=== PATIENT | female | born 1950 | race Caucasian/White ===

== ENCOUNTER 2017-01-27 13:10 | Inpatient (IN) | payer MEDICAID ==
[2017-01-27] MEDS ORDERED: NS 1,000 ML IV ONE (13:35)
--- NOTE | 2017-01-27 13:36 | EDPHY ---
H & P Time Seen by Provider: 01/27/17 13:34 HPI/ROS: CHIEF COMPLAINT: Hyperglycemia, UTI symptoms HISTORY OF PRESENT ILLNESS: This patient is a 66 year old diabetic female with history of chronic UTI who was referred to the Emergency Department by Dr. Garcia for hyperglycemia measured above 600 today and persistent UTI-related symptoms. She admits that she is noncompliant with insulin for diabetes due to "difficulty coping with chronic illness." She does not take metformin. Upon arrival, she complains of stabbing pains to her left flank, urinary frequency, and intermittent fevers up to 101F measured at home over the past week. She denies hematuria or dysuria. No lightheadedness, nausea, or abdominal pain. Medical history also renal cell carcinoma with left-sided nephrectomy; she is concerned that her chronic UTI is somehow related to this prior procedure. REVIEW OF SYSTEMS: Constitutional: +fever, no chills Eyes: No visual changes ENT: No sore throat Respiratory: No cough, no shortness of breath Cardiac: No chest pain Gastrointestinal: No nausea, no vomiting, no abdominal pain Genitourinary: +left flank pain, no hematuria, no dysuria Musculoskeletal: No leg pain or swelling Skin: No rash Neurological: No headache, no numbness, no weakness Psychiatric: No depression Past Medical/Surgical History: Prior medical records reviewed; most recent visit to the ED was in 03/2016 for recurrent UTI. PMH and PSH includes: Diabetes type 2, paroxysmal atrial fibrillation, renal cell carcinoma on the left status post nephrectomy, kidney stones, recurrent UTIs, chronic pain, fibromyalgia. Social History: Non-smoker. No alcohol use. Lives independently with home health caregivers, one of whom is at bedside today. She is mostly bed-bound. Smoking Status: Never smoked Physical Exam: General Appearance: Alert, no distress, obese Eyes: Pupils equal and round, no conjunctival pallor or injection ENT, Mouth: Mucous membranes moist Neck: Normal inspection Respiratory: Lungs are clear to auscultation Cardiovascular: Regular rate and rhythm Gastrointestinal: Abdomen is soft and non- tender Neurological: A&O, nonfocal, normal gait Skin: Warm and dry, no rash Extremities: Nontender, no pedal edema Psychiatric: Mood and affect normal Constitutional: Initial Vital Signs Temperature (C) 37.0 C 01/27/17 13:19 Heart Rate 123 H 01/27/17 13:19 Respiratory Rate 18 04/04/17 13:19 Blood Pressure 132/86 H 01/27/17 13:19 O2 Sat (%) 91 L 01/27/17 13:19 O2 Delivery Mode Room Air Allergies/Adverse Reactions: erythromycin base [Erythromycin Base] Allergy (Severe, Verified 01/27/17 13:24) Rash Penicillins Allergy (Severe, Verified 01/27/17 13:24) Rash Shellfish *RETIRED-07/05/12 [Shellfish] Allergy (Severe, Verified 01/27/17 13:24 ) Rash Sulfa (Sulfonamide Antibiotics) Allergy (Severe, Verified 01/27/17 13:24) Rash codeine Allergy (Unknown, Verified 01/27/17 13:24) "ANTIBIOTICS" Allergy (Severe, Uncoded 12/01/11 21:02) Other-Enter Comments Home Medications: Medication Instructions Recorded Azelastine [Astelin] 2 sprays NASAL BID PRN 12/01/11 Thyroid,Pork [ARMOUR THYROID] 90 mg PO DAILY 12/01/11 amLODIPine BESYLATE [Norvasc 10 mg 10 mg PO DAILY 12/01/11 (*)] Albuterol [Proventil Neb] 3 ml IH QID PRN 04/19/16 Albuterol [Ventolin Hfa Inhaler] 1 - 2 puffs IH Q4 PRN 04/19/16 Lisinopril [Zestril 5 mg (*)] 5 mg PO DAILY 04/19/16 Nystatin [Mycostatin Oral Liquid 500,000 unit PO QID 04/19/16 (*)] Terconazole 0.8% Cream 1 venancio VG DAILY PRN 04/19/16 morphINE SR [MS Contin/Oramorph 60 60 mg PO BID@,18 04/19/16 mg (*)] morphINE IR [morphINE IR 15 mg (*)] 15 mg PO BID PRN 04/20/16 Clotrimazole [Mycelex (*)] 10 mg PO 5XD 01/27/17 Fluconazole [Diflucan] 400 mg PO DAILY 01/27/17 Sennosides/Docusate Sodium 1 - 2 tab PO BID PRN 01/27/17 [Senokot-S] Medical Decision Making ED Course/Re-evaluation: This 66 year old female diabetic is noncompliant with medications per Dr. Garcia and presents with bgl of 434. She has a chronic UTI that has not been alleviated effectively with multiple rounds of antibiotics. Her primary complaints appear to be secondary to this UTI and include left-sided flank pain , urinary frequency, and intermittent low-grade fevers. Dr. Garcia requests that we proceed with admission for further evaluation of these symptoms and for effective management of diabetic hyperglycemia. I discussed this plan with the patient who is agreeable to this. Will proceed with urogram and labs. The patient is refusing to provide a urine sample and is requesting placement of Yin catheter. IV established. 1L IV NS administered. UA is positive for UTI. Labs obtained: WBC is elevated at 13.11. 1 gram IV Ceftriaxone and 6 units IV insulin administered. 1448: Consultation with Dr. Nuris Garland, hospitalist, who accepts admission. Differential Diagnosis: Differential diagnosis for the patient's flank pain and urinary frequency includes but is not limited to: UTI, pyelonephritis, or kidney stone. Ddx for hyperglycemia includes though not limited to DKA, ACS, pneumonia, severe dehydration - Data Points Laboratory Results: Laboratory Results 01/27/17 13:47 01/27/17 13:47 Medications Given: Discontinued Medications Sodium Chloride (Ns) 1,000 mls @ 0 mls/hr IV ONCE ONE PRN Reason: Wide Open Stop: 01/27/17 13:36 Last Admin: 01/27/17 14:30 Dose: 1,000 mls Ceftriaxone Sodium/Dextrose (Rocephin 1 Gm (Premix)) 50 mls @ 100 mls/hr IV EDNOW ONE PRN Reason: Protocol Stop: 01/27/17 14:49 Last Admin: 01/27/17 16:02 Dose: 50 mls Insulin Human Regular (Humulin R) 6 unit IVP EDNOW ONE Stop: 01/27/17 14:44 Last Admin: 01/27/17 16:04 Dose: 6 units Departure - Departure Disposition: [facility] In[facility] Acute Clinical Impression: Hyperglycemia Urinary tract infection Qualifiers: Urinary tract infection type: site unspecified Hematuria presence: with hematuria Qualified Code(s): N39.0 - Urinary tract infection, site not specified Condition: Fair Report Scribed for: Elvira Castillo Report Scribed by: Jill Jolly Date of Report: 01/27/17 Time of Report: 13:35 Physician Review and Approval Statement: 01/27/17 13:35 Portions of this note were transcribed by a chief medical technologist. I personally performed a history, physical exam, medical decision making, and confirmed accuracy of information the transcribed note.
[2017-01-27 13:58] LABS: % IMMATURE GRANULYOCYTES 0.6 % (0.0-1.1); ABSOLUTE IMMATURE GRANULOCYTES 0.08 10^3/uL (0.00-0.10); ADD DIFF? NO; ADD MORPH? NO; ADD SCAN? NO; ATYPICAL LYMPHOCYTE FLAG 0 (0-99); FRAGMENT RBC FLAG 0 (0-99); HEMATOCRIT 49.1 % (38.0-47.0); HEMOGLOBIN 15.9 g/dL (12.6-16.3); LEFT SHIFT FLG 0 (0-99); LIPEMIA HEMOLYSIS FLAG 80 (0-99); MEAN CELL HEMOGLOBIN 27.3 pg (27.9-34.1); MEAN CELL HEMOGLOBIN CONCENTR. 32.4 g/dL (32.4-36.7); MEAN CELL VOLUME 84.4 fL (81.5-99.8); MEAN PLATELET VOLUME 9.8 fL (8.7-11.7); PLATELET CLUMPS FLAG 0 (0-99); PLATELET COUNT 362 10^3/uL (150-400); RED BLOOD CELL COUNT 5.82 10^6/uL (4.18-5.33); RED CELL DISTRIBUTION WIDTH 12.5 % (11.5-15.2)
[2017-01-27 14:15] LABS: COLOR YELLOW; LEUKOCYTE ESTERASE,URINE 3+ (NEGATIVE); NITRITE,URINE NEGATIVE (NEGATIVE)
[2017-01-27 14:15] LABS: ANION GAP 15 mEq/L (8-16); CALCIUM 9.7 mg/dL (8.5-10.4); CARBON DIOXIDE 24 mEq/l (22-31); CHLORIDE 97 mEq/L (97-110); CREATININE 0.8 mg/dL (0.6-1.0); GLOMERULAR FILTRATION RATE > 60; GLUCOSE 434 mg/dL (70-100); POTASSIUM 5.2 mEq/L (3.5-5.2); SODIUM 136 mEq/L (134-144)
[2017-01-27 14:26] LABS: BACTERIA 1+ /hpf (NONE SEEN); MUCUS TRACE /lpf (NONE-1+); RBC,URINE 25-50 /hpf (0-3); WBC,URINE 50-182 /hpf (0-3)
[2017-01-27] MEDS ORDERED: IOPAMIDOL (ISOVUE-300) 100 ML BTL IV ONE (14:32)
[2017-01-27] MEDS ORDERED: INSULIN REGULAR HUMAN 100 UNIT/ML IVP ONE (14:43)
[2017-01-27] MEDS ORDERED: ONDANSETRON 4 MG/2 ML VIAL IVP PRN (16:28)
[2017-01-27] MEDS ORDERED: ONDANSETRON DISINTEGRATING 4 MG TAB PO PRN (16:28)
[2017-01-27] MEDS ORDERED: ACETAMINOPHEN 325 MG TAB PO PRN (16:28)
[2017-01-27] MEDS ORDERED: AZELASTINE NASAL MDI EACHNARE PRN (16:30)
[2017-01-27] MEDS ORDERED: SENNOSIDES/DOCUSATE SODIUM TAB PO PRN (16:30)
[2017-01-27] MEDS ORDERED: ALBUTEROL 3 ML DEYVIAL IH PRN (16:36)
[2017-01-27] MEDS ORDERED: D50W 25 GM/50 ML SYR IVP PRN (17:09)
[2017-01-27] MEDS ORDERED: ALBUTEROL 60 PUFFS/8 GM MDI IH PRN (17:30)
--- NOTE | 2017-01-27 17:30 | GHP ---
[f rep st] HISTORY AND PHYSICAL DATE OF ADMISSION: 01/27/2017 CHIEF COMPLAINT: Hyperglycemia, UTI. HISTORY OF PRESENT ILLNESS: The patient is a 66-year-old female with history of morbid obesity, fibromyalgia, recurrent UTIs presenting from her PCP, Dr. Medina, [facility] for hyperglycemia with a sugar greater than 300 today. She also complains of persistent UTI related symptoms. She was last hospitalized in 2016 and had E coli UTI that was treated. She says since that discharge, she has been having urinary frequency to the point of going every 45 minutes. Over the last few days, she has reported left flank pain, fevers to 101 and nausea. She also reports some cramping abdominal pain and decreased p.o. intake. She says she has been treated in the last couple months with Macrobid. Does not tolerate pills, "they cause vertigo." She has had difficulty seeing a urologist secondary to Medicaid. At 1 point, she did see a Dr. Casey, but this was brief. Patient says she cannot ambulate for a very long time due to chronic pain. Does not use a walker or wheelchair. The patient has not been taking her insulin or using CPAP stating difficult to cope with all of her chronic illnesses. REVIEW OF SYSTEMS: I completed a 10-point review of systems, negative except as noted in HPI. PAST MEDICAL HISTORY: 1. Type 2 diabetes. 2. History of E coli UTI. 3. Lumbar stenosis, was evaluated by Neurosurgery in March 2016 not a surgical candidate. 4. Morbid obesity. 5. Chronic narcotic use. 6. Fibromyalgia. 7. Pulmonary nodules. 8. Kidney stone status post ureteral stent. 9. Paroxysmal atrial fibrillation. 10. SRUTHI on CPAP. 11. Renal cell carcinoma. PAST SURGICAL HISTORY: 1. Status post uvulopalatopharyngoplasty. 2. Adenectomy. 3. Diaphragmatic hernia repair. 4. Left partial nephrectomy 2002. 5. Lithotripsy 2011. FAMILY HISTORY: Father with diabetes. SOCIAL HISTORY: Lives in [place], has a caregiver. No illicits or tobacco. Did medical marijuana in the past but does not have a card currently. ALLERGIES: Erythromycin, penicillin, shellfish, sulfas, codeine, "antibiotics". HOME MEDICATIONS: 1. MS Contin 60 mg twice daily. 2. Morphine IR 15 mg twice daily p.r.n. 3. Norvasc 10 mg daily. 4. 20 mg daily. 5. Triaconazole cream p.r.n. 6. Senna p.r.n. 7. MiraLAX p.r.n. 8. Nystatin oral liquid. 9. Methyl mag p.r.n. 10. Lisinopril 5 mg daily. 11. Detemir 10 mg subcu, not taking. 12. Astelin 2 sprays twice daily p.r.n. 13. Albuterol. 14. Tylenol as needed. PHYSICAL EXAM: VITAL SIGNS: Temperature 36.9 blood pressure 101/89, heart rate 95-120s, respiration 18, 93% on room air. GENERAL: Patient is morbidly obese, , no acute distress. HEENT: PERRLA. EOMI. Oropharynx clear. Poor dentition. CV: Regular rate and rhythm. No murmurs, gallops, rubs. LUNGS: Clear to auscultation bilaterally. ABDOMEN: Obese, soft, nontender, not distended. Positive bowel sounds. : No suprapubic tenderness. Has right flank and right CVA tenderness. MUSCULOSKELETAL: Moving all 4 extremities. NEUROLOGIC: 2-12 intact. PSYCH: Alert and oriented x3. LAB: WBC 13, hemoglobin 15, hematocrit 49, platelets 362. Sodium 136, potassium 5.2, chloride 97, carbon dioxide 24, BUN 13, creatinine 0.8, sugar of 434 (600 at [facility]). Calcium 9.8. UA is WBCs 15-82, +1 bacteria, +3 leuks. Urine culture pending. ASSESSMENT AND PLAN: 1. Urinary tract infection: Sounds like this has been a chronic issue for patient. Patient asymptomatic. We will treat with ceftriaxone. Culture is pending. CT pending. Consider Urology consult. 2. Uncontrolled diabetes: The patient has not been compliant with her detemir. We will start sliding scale here and glargine. We will add an A1c. No gap at this time. She was dosed insulin in the emergency room. We will start fluids. 3. Morbid obesity: The patient was counseled on exercise and diet. 4. Fibromyalgia/chronic pain. We will continue home medications. 5. History of kidney stones, status post ureteral stent. 6. Paroxysmal atrial fibrillation: Normal sinus rhythm now. CHADsvasc 4, not on anticoagulants. 7. History of obstructive sleep apnea with CPAP. 8. History of renal cell carcinoma status post partial left nephrectomy. 9. Leukocytosis: WBC 13. Suspect secondary to urinary tract infection. Culture is pending. She is currently afebrile 10. Benign HTN: cont home meds . DIET: Diabetic. DEEP VENOUS THROMBOSIS PROPHYLAXIS: Lovenox. DISPOSITION: Patient warrants inpatient admission given multiple comorbidities including uncontrolled diabetes, and UTIs warranting IV insulin and antibiotics. /[id number]/MODL MTDD
--- NOTE | 2017-01-27 17:35 | CPEKG ---
Heart Rate: 90 RR Interval: 667 P-R Interval: 152 QRSD Interval: 78 QT Interval: 352 QTC Interval: 431 P [place]: 48 QRS [place]: 23 T Wave [place]: 25 EKG Severity - NORMAL ECG - EKG Impression: SINUS RHYTHM EKG Impression: SINUS RHYTHM HAS REPLACED ATRIAL FIBRILLATION ON PROR ECG Electronically Signed By: Mario Taylor 28-Jan-2017 12:15:33
[2017-01-27 17:39] LABS: HEMOGLOBIN A1C 11.1 % (4.0-6.0)
[2017-01-27] MEDS: morphINE SR 60 MG TAB PO SCH (18:17)
[2017-01-27] MEDS: CLOTRIMAZOLE 10 MG TROCHE PO SCH ×2 (18:18→20:45)
[2017-01-27] MEDS: INSULIN LISPRO 100 UNIT/ML SC SCH (18:23)
[2017-01-27] MEDS: NYSTATIN SUSP 500000 UNIT/5 ML UDCUP PO SCH (20:45)
[2017-01-27] MEDS ORDERED: INSULIN GLARGINE 100 UNITS/ML SYRINGE SC SCH (21:00)
[2017-01-28] MEDS: morphINE SR 60 MG TAB PO SCH ×2 (05:14→17:58)
[2017-01-28] MEDS: NYSTATIN SUSP 500000 UNIT/5 ML UDCUP PO SCH ×4 (05:14→21:39)
[2017-01-28] MEDS: CLOTRIMAZOLE 10 MG TROCHE PO SCH ×5 (05:14→21:39)
[2017-01-28 05:57] LABS: HEMOGLOBIN 14.2 g/dL (12.6-16.3); MEAN CELL HEMOGLOBIN 27.9 pg (27.9-34.1); MEAN CELL HEMOGLOBIN CONCENTR. 32.3 g/dL (32.4-36.7); MEAN CELL VOLUME 86.4 fL (81.5-99.8); RED BLOOD CELL COUNT 5.09 10^6/uL (4.18-5.33); RED CELL DISTRIBUTION WIDTH 12.5 % (11.5-15.2)
[2017-01-28 06:15] LABS: ANION GAP 11 mEq/L (8-16); CALCIUM 8.8 mg/dL (8.5-10.4); CARBON DIOXIDE 24 mEq/l (22-31); CHLORIDE 100 mEq/L (97-110); CREATININE 0.7 mg/dL (0.6-1.0); GLOMERULAR FILTRATION RATE > 60; GLUCOSE 284 mg/dL (70-100); POTASSIUM 4.3 mEq/L (3.5-5.2); SODIUM 135 mEq/L (134-144)
[2017-01-28] MEDS: LISINOPRIL 5 MG TAB PO SCH (08:19)
[2017-01-28] MEDS: ENOXAPARIN 40 MG/0.4 ML SYR SC SCH (08:19)
[2017-01-28] MEDS: INSULIN LISPRO 100 UNIT/ML SC SCH ×3 (08:20→17:58)
[2017-01-28] MEDS ORDERED: TERCONAZOLE 0.8% VG PRN (09:00)
[2017-01-28] MEDS: THYROID 60 MG TAB PO SCH (11:11)
--- NOTE | 2017-01-28 16:07 | HOSPPROG ---
Hospitalist Progress Note Assessment/Plan: Assessment: 66-year-old female presents with sepsis in the setting of pyelonephritis, complicated by morbid obesity, chronic pain with continuous opiate dependency Plan: 1. Sepsis. Evidenced by tachycardia with a heart rate of 120, [place] [address], documented fever at home of 101 degrees F , clearly identifiable source of infection notably pyelonephritis, resulting in autonomic dysregulation in the setting of infection, meeting all sepsis-2 criteria from the initial consensus definition on sepsis. -status post IV fluids -received empiric IV antibiotics -continue to monitor white blood cell count and fever curve -remains tachycardic 2. Pyelonephritis. Acute, evidenced by CT of the abdomen demonstrating left- sided pyelonephritis without any perinephric abscess -urine culture currently pending -reviewed outside records including 04/19/2016 urine culture positive for E coli , resistant to ampicillin -continue day 2 of IV ceftriaxone -given patient's extensive sensitivities to antibiotics, currently awaiting speciation and sensitivity to determine appropriate antibiotic selection -patient is amenable to an inpatient trial of oral antibiotics once the sensitivities have been obtained, in attempt to potentially avoid a PICC line and home IV antibiotics -patient has ongoing left flank and abdominal pain, most likely secondary to acute infection -the patient describes 4 years of urinary frequency and this is not clinically consistent with a chronic urinary tract infection as this would have resulted in a significant infectious event in the interim without treatment, suspect that her chronic urinary frequency is most likely secondary to overactive bladder and would recommend trialing oxybutynin when patient is amenable -attempting to obtain outside records from Dr. Garcia regarding previous treatments for overactive bladder 3. Nephrolithiasis. Chronic, patient had kidney stones identified in 2011 in the setting of sepsis and urinary tract infection at that time -patient was seen by Urology, Dr. Balwinder Oviedo, patient is not amenable to being seen by a urologist at this time -although I would recommend a ESWL as an outpatient, the patient reports an extensive history of being unable to find a Medicaid accepting a urologist in the [facility] 4. Morbid obesity. BMI of 43, increase patient's risk of worsening morbidity and mobility 5. Chronic pain with continuous opiate dependency. Patient will be continued on her home pain medications, attempt not to escalate 6. Uncontrolled diabetes mellitus. Hemoglobin A1c 11.1%, up titrate her long- acting insulin 7. Chronic hypoxic respiratory failure. Continue on supplemental oxygen, most likely secondary to a combination of Occup[facility] Services, SRUTHI 8. SRUTHI. Chronic, continue CPAP at night 9. Paroxysmal atrial fibrillation. EKG demonstrates normal sinus mechanism, continue home medications Diet. Diabetic diet Prophylaxis. High risk patient, Lovenox 40 Code. Full Disposition. Anticipated discharge uncertain this time, pending clinical resolution of pyelonephritis above. Subjective: Patient is convinced that she has had urinary tract infection for 4 years, she continues to have left-sided abdominal pain Objective: Vital Signs Temp Pulse Resp BP Pulse Ox 36.3 C 94 14 116/78 97 01/28/17 12:42 01/28/17 12:42 01/28/17 12:42 01/28/17 12:42 01/28/17 12:42 Laboratory Results 01/28/17 05:34 01/28/17 05:34 01/27/17 01/28/17 01/29/17 05:59 05:59 05:59 Intake Total 750 Output Total 300 Balance 450 - Time Spent With Patient Time Spent with Patient: greater than 35 minutes Time Spent with Patient: Greater than 35 minutes spent on this patients care, greater than 50% of time spent counseling, educating, and coordinating care regarding the above mentioned plan. - Physical Exam Constitutional: no apparent distress, chronically ill appearing, obese, uncomfortable, unkempt Cardiovascular: no murmur, rub, or gallop, tachycardia, No irregularly irregular Respiratory: no respiratory distress, no rales or rhonchi, clear to auscultation , other (Distant) Gastrointestinal: normoactive bowel sounds, tenderness (Left abdomen) Neurologic: AAOx3 Psychiatric: other (Articulate speech, flat affect, level stare) ICD10 Worksheet Patient Problems: Problems Problem Status Onset Urinary tract infection Acute Hyperglycemia Acute Urinary frequency Acute
[2017-01-28] MEDS ORDERED: INSULIN GLARGINE 100 UNITS/ML SYRINGE SC SCH (16:09)
[2017-01-29 05:40] LABS: % IMMATURE GRANULYOCYTES 0.5 % (0.0-1.1); ABSOLUTE IMMATURE GRANULOCYTES 0.04 10^3/uL (0.00-0.10); ADD DIFF? NO; ADD MORPH? NO; ADD SCAN? NO; ATYPICAL LYMPHOCYTE FLAG 10 (0-99); FRAGMENT RBC FLAG 0 (0-99); HEMATOCRIT 42.7 % (38.0-47.0); HEMOGLOBIN 13.8 g/dL (12.6-16.3); LEFT SHIFT FLG 0 (0-99); LIPEMIA HEMOLYSIS FLAG 80 (0-99); MEAN CELL HEMOGLOBIN 27.5 pg (27.9-34.1); MEAN CELL HEMOGLOBIN CONCENTR. 32.3 g/dL (32.4-36.7); MEAN CELL VOLUME 85.2 fL (81.5-99.8); MEAN PLATELET VOLUME 9.7 fL (8.7-11.7); PLATELET CLUMPS FLAG 0 (0-99); PLATELET COUNT 232 10^3/uL (150-400); RED BLOOD CELL COUNT 5.01 10^6/uL (4.18-5.33); RED CELL DISTRIBUTION WIDTH 12.6 % (11.5-15.2)
[2017-01-29] MEDS: CLOTRIMAZOLE 10 MG TROCHE PO SCH ×5 (05:46→21:10)
[2017-01-29] MEDS: NYSTATIN SUSP 500000 UNIT/5 ML UDCUP PO SCH ×4 (05:46→21:10)
[2017-01-29] MEDS: morphINE SR 60 MG TAB PO SCH ×2 (05:47→18:27)
[2017-01-29 06:00] LABS: ANION GAP 7 mEq/L (8-16); CALCIUM 8.7 mg/dL (8.5-10.4); CARBON DIOXIDE 25 mEq/l (22-31); CHLORIDE 101 mEq/L (97-110); CREATININE 0.6 mg/dL (0.6-1.0); GLOMERULAR FILTRATION RATE > 60; GLUCOSE 249 mg/dL (70-100); POTASSIUM 4.4 mEq/L (3.5-5.2); SODIUM 133 mEq/L (134-144)
[2017-01-29] MEDS ORDERED: INSULIN GLARGINE 100 UNITS/ML SYRINGE SC SCH (08:30)
[2017-01-29] MEDS ORDERED: NS 1,000 ML IV SCH (08:30)
[2017-01-29] MEDS: INSULIN LISPRO 100 UNIT/ML SC SCH ×3 (09:02→18:28)
[2017-01-29] MEDS: LISINOPRIL 5 MG TAB PO SCH (09:04)
[2017-01-29] MEDS: ENOXAPARIN 40 MG/0.4 ML SYR SC SCH ×2 (09:05→21:10)
[2017-01-29] MEDS: THYROID 60 MG TAB PO SCH (11:12)
--- NOTE | 2017-01-29 12:28 | HOSPPROG ---
Hospitalist Progress Note Assessment/Plan: Assessment: 66-year-old female presents with sepsis in the setting of pyelonephritis, complicated by morbid obesity, chronic pain with continuous opiate dependency Plan: 1. Sepsis. Evidenced by tachycardia with a heart rate of 120, [place] [address], documented fever at home of 101 degrees F , clearly identifiable source of infection notably pyelonephritis, resulting in autonomic dysregulation in the setting of infection, meeting all sepsis-2 criteria from the initial consensus definition on sepsis. -received empiric IV antibiotics -continue to monitor white blood cell count and fever curve -remains tachycardic, cont IVF 2. E. coli Pyelonephritis. Acute, evidenced by CT of the abdomen demonstrating left-sided pyelonephritis without any perinephric abscess -urine culture currently pending -s/p 3 days of CTX (tolerated well) -E coli w/ fluoroqui sensitivity, patient highly adverse to PO abx but is willing to trial and gauge effect, start PO levofloxacin 750 now -patient has ongoing left flank and abdominal pain, most likely secondary to acute infection + chronic pain syndrome -reviewed outside records from Dr. Garcia (clinic note 01/27/17) which reported that oxybutinin had been trialed in 2016, patient did not note benefit 3. Nephrolithiasis. Chronic, patient had kidney stones identified in 2011 in the setting of sepsis and urinary tract infection at that time -patient was seen by Urology, Dr. Balwinder Oviedo, patient is not amenable to being seen by a urologist at this time -although I would recommend a ESWL as an outpatient, records from Dr. Garcia indicate that patient has been seen at urology where this was also recommended and patient declined 4. Morbid obesity. BMI of 43, increase patient's risk of worsening morbidity and mobility 5. Chronic pain with continuous opiate dependency. Patient will be continued on her home pain medications, attempt not to escalate 6. Uncontrolled diabetes mellitus. Hemoglobin A1c 11.1%, up titrate her long- acting insulin to 20u HS 7. Chronic hypoxic respiratory failure. Continue on supplemental oxygen, most likely secondary to a combination of [facility], SRUTHI 8. SRUTHI. Chronic, continue CPAP at night 9. Paroxysmal atrial fibrillation. EKG demonstrates normal sinus mechanism, continue home medications Diet. Diabetic diet Prophylaxis. High risk patient, Lovenox 40 Code. Full Disposition. Anticipated discharge 01/30, pending clinical tolerance of PO Abx and improvement of tachycardia. Subjective: Patient believe she has systemic candidiasis and that is why her lips are dry Objective: Vital Signs Temp Pulse Resp BP Pulse Ox 36.8 C 83 17 119/80 95 01/29/17 03:08 01/29/17 09:00 01/29/17 03:08 01/29/17 09:05 01/29/17 09:00 Laboratory Results 01/29/17 05:07 01/29/17 05:07 01/28/17 01/29/17 01/30/17 05:59 05:59 05:59 Intake Total 750 940 Output Total 300 200 Balance 450 740 - Time Spent With Patient Time Spent with Patient: greater than 35 minutes Time Spent with Patient: Greater than 35 minutes spent on this patients care, greater than 50% of time spent counseling, educating, and coordinating care regarding the above mentioned plan. - Physical Exam Constitutional: no apparent distress, chronically ill appearing, obese, uncomfortable Ears, Nose, Mouth, Throat: no oral mucosal ulcers, other (Dry lips), No hearing normal, No oral thrush Cardiovascular: tachycardia, No irregularly irregular Respiratory: no respiratory distress, no rales or rhonchi, clear to auscultation Gastrointestinal: normoactive bowel sounds, soft, non-tender abdomen, no palpable masses Neurologic: AAOx3 Psychiatric: not encephalopathic, other (Manipulative in lingering stare) ICD10 Worksheet Patient Problems: Problems Problem Status Onset Urinary tract infection Acute Hyperglycemia Acute Urinary frequency Acute
[2017-01-30 05:21] LABS: % IMMATURE GRANULYOCYTES 0.5 % (0.0-1.1); ABSOLUTE IMMATURE GRANULOCYTES 0.04 10^3/uL (0.00-0.10); ADD DIFF? NO; ADD MORPH? NO; ADD SCAN? NO; ATYPICAL LYMPHOCYTE FLAG 10 (0-99); FRAGMENT RBC FLAG 0 (0-99); LEFT SHIFT FLG 0 (0-99); LIPEMIA HEMOLYSIS FLAG 80 (0-99); MEAN CELL HEMOGLOBIN 27.6 pg (27.9-34.1); MEAN CELL HEMOGLOBIN CONCENTR. 31.8 g/dL (32.4-36.7); MEAN CELL VOLUME 86.6 fL (81.5-99.8); MEAN PLATELET VOLUME 9.8 fL (8.7-11.7); PLATELET CLUMPS FLAG 0 (0-99); PLATELET COUNT 242 10^3/uL (150-400); RED BLOOD CELL COUNT 5.08 10^6/uL (4.18-5.33); RED CELL DISTRIBUTION WIDTH 12.2 % (11.5-15.2)
[2017-01-30 05:34] LABS: ANION GAP 10 mEq/L (8-16); CALCIUM 8.8 mg/dL (8.5-10.4); CARBON DIOXIDE 26 mEq/l (22-31); CHLORIDE 100 mEq/L (97-110); CREATININE 0.6 mg/dL (0.6-1.0); GLOMERULAR FILTRATION RATE > 60; GLUCOSE 218 mg/dL (70-100); POTASSIUM 4.5 mEq/L (3.5-5.2); SODIUM 136 mEq/L (134-144)
[2017-01-30] MEDS: morphINE SR 60 MG TAB PO SCH (05:48)
[2017-01-30] MEDS: CLOTRIMAZOLE 10 MG TROCHE PO SCH ×3 (05:48→15:40)
[2017-01-30] MEDS: NYSTATIN SUSP 500000 UNIT/5 ML UDCUP PO SCH ×3 (05:48→15:38)
[2017-01-30 07:24] VITALS: RESP 18
[2017-01-30] MEDS: LISINOPRIL 5 MG TAB PO SCH (09:12)
[2017-01-30] MEDS: INSULIN LISPRO 100 UNIT/ML SC SCH ×2 (09:12→13:11)
[2017-01-30] MEDS: ENOXAPARIN 40 MG/0.4 ML SYR SC SCH (09:13)
[2017-01-30] MEDS: THYROID 60 MG TAB PO SCH (11:30)
--- NOTE | 2017-01-30 12:07 | PDDCSUM ---
Discharge Summary Discharge Summary: DISCHARGE SUMMARY FOLLOW-UP ITEMS: None DATE OF ADMISSION: 01/27/17 DATE OF DISCHARGE: 01/30/17 DISCHARGE DIAGNOSES: 1. Sepsis 2. E coli pyelonephritis 3. Chronic nephrolithiasis 4. Morbid obesity with a BMI of 43 5. Chronic pain with continuous opiate dependency 6. Uncontrolled diabetes mellitus 7. Chronic hypoxic respiratory failure 8. Chronic OS 80 9. Paroxysmal atrial fibrillation CONSULTATIONS: None PROCEDURES / IMAGING: CT of the abdomen demonstrating left-sided pyelonephritis with perinephric stranding, nonobstructive calculi in left kidney, hepatic steatosis fat necrosis posterior left kidney CHIEF COMPLAINT: Acute abdominal pain SUBJECTIVE: Patient reports she has some ongoing neuropathy in her bilateral lower extremities PHYSICAL EXAM ON DISCHARGE: Systolic blood pressure is 120, heart rates 80, afebrile overnight, chronically ill-appearing, morbidly obese, has a level stare, right thumb has some bruising but improved range of motion from day prior LABS ON DISCHARGE: White blood cell count 8000, hemoglobin 14, glucose 230, creatinine 0.6 HOSPITAL COURSE BY PROBLEM: 1. Sepsis. Evidenced by tachycardia, leukocytosis, documented fever, clearly identifiable source of infection notably pyelonephritis, resulting in autonomic dysregulation in the setting of infection, meeting all sepsis-2 criteria from the international consensus definition on sepsis-2. She received empiric IV fluids and empiric IV antibiotics. Her leukocytosis improved and she was afebrile at time of discharge. 2. E coli pyelonephritis. Evidenced by CT of the abdomen demonstrating left- sided chinmay nephric stranding without overt abscess. This is most likely occurred in the setting of chronic nephrolithiasis. Her urine culture demonstrated for quinolone sensitive E coli and she has been safely transition to oral levofloxacin and monitored for any drug sensitivity as the patient reports she is highly sensitive to oral antibiotics. Given that she has tolerated this antibiotic well, she will be discharged on 7 subsequent days of oral antibiotic therapy. She will receive a total of at least 10 days of antibiotic therapy for her pyelonephritis. It should be noted that the patient complains of chronic urinary frequency and she believes that she chronically has had urinary tract infection since 2011. This is not consistent with modern medicine. The patient most likely has a urinary frequency either from bladder dystonia or her morbid obesity resulting an syncope muscle insufficiency. The patient has been seen extensively by urologist in the past and I have reviewed Dr. Radha most recent clinic note outlining her previous course of treatment. She was prescribed oxybutynin in the past, but the patient electively decided not to take this medication secondary to later she found about this product on the Internet. Consequently, the patient does not want to take any medication for her urinary frequency at this time and I have advised her that in the future she will need to have urinalysis performed at Dr. Garcia discretion and to decipher whether her polyuria is infected secondary to recurrent urinary tract infection versus noninfectious etiology as outlined above. 3. Chronic nephrolithiasis. Patient has had kidney stones identified in the past and it has been recommended that she undergo ESWL as an outpatient. The patient has not had optimal experiences with local urologist or the ones at , and consequently she does not want to see a urologist for this issue moving forward. 4. Morbid obesity. BMI 43, increase this patient's risk of morbidity and reduced mobility. 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 5. Chronic pain with continuous opiate dependency. Patient reports that she has fibromyalgia although I suspect the patient most likely has neuropathy in her lower extremities secondary to uncontrolled diabetes. At the present time, the patient is not amenable to adjusting her pain medications and utilizing a neuropathic agent such as gabapentin. I recommend that this conversation be continued with the patient in the outpatient setting in an attempt to better manage her pain with a true neuropathic agent as opposed opiates. 6. Uncontrolled diabetes mellitus. Most recent hemoglobin A1c is 11.1% and she received long-acting insulin during this hospitalization. We recommended she re -initiate her outpatient Levemir at her previous dosing and continued up titrate this in the outpatient setting under the direction of Dr. Garcia. 7. Chronic hypoxic respiratory failure. Patient was continued on supplemental oxygen which she receives for OHS and SRUTHI. 8. SRUTHI. Chronic continued on CPAP. 9. Paroxysmal atrial fibrillation. Patient demonstrated a sinus mechanism during this hospitalization. DISCHARGE MEDICATIONS: Please see official discharge medication reconciliation sheet in chart , levofloxacin 750 mg once daily for 7 subsequent days, continue all other home medications. DISCHARGE INSTRUCTIONS: Please follow up with Dr. Garcia within 1 week. TIME SPENT: Greater than 30 minutes were spent on direct patient care, as well as discharge planning and preparation.
[2017-01-30 16:23] VITALS: BP 142/107; PULSE 105; TEMP 98.1; O2SAT 90
== END 2017-01-30 16:28 | disposition home health service (06) | DRG 872 ==
LOC: F1N 15:13
PROVIDERS: ADMIT Internal Medicine; ATTEND Internal Medicine
DX: A41.51 Sepsis due to Escherichia coli [E. coli] (principal); N10 Acute pyelonephritis; B96.20 Unspecified Escherichia coli [E. coli] as the cause of diseases classified elsewhere; E11.65 Type 2 diabetes mellitus with hyperglycemia; Z91.14 Patient's other noncompliance with medication regimen; I48.0 Paroxysmal atrial fibrillation; G89.29 Other chronic pain; F11.20 Opioid dependence, uncomplicated; Z85.528 Personal history of other malignant neoplasm of kidney; E66.01 Morbid (severe) obesity due to excess calories; Z68.41 Body mass index [BMI] 40.0-44.9, adult; J96.11 Chronic respiratory failure with hypoxia; I10 Essential (primary) hypertension; Z90.5 Acquired absence of kidney; Z87.442 Personal history of urinary calculi; Z87.440 Personal history of urinary (tract) infections; Z99.81 Dependence on supplemental oxygen
CPT/HCPCS: 96374; J0696; J1650; J1815; Q9967

== ENCOUNTER 2017-09-15 14:07 | Observation (INO) | payer MEDICAID ==
[2017-09-15] MEDS ORDERED: NS 1,000 ML IV ONE (14:18)
--- NOTE | 2017-09-15 14:21 | EDPHY ---
H & P Stated Complaint: Fall Time Seen by Provider: 09/15/17 14:07 HPI/ROS: CHIEF COMPLAINT: Fall last night HISTORY OF PRESENT ILLNESS: Patient is a 67 year old morbidly obese female who fell last night. She states that she lost her balance in the kitchen and fell into the counter on her right arm and then onto the ground on her left side. She then crawled to her bedroom. She is unable to get herself up into her bed and she has he slept on the floor last night. Her care provider came at noon today and found her on the floor. She complains mainly of pain in the right arm and left leg. She denies head neck or back injury. 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 REVIEW OF SYSTEMS: Constitutional: denies: chills, fever, recent illness, recent injury EENTM: denies: blurred vision, double vision, nose congestion Respiratory: denies: cough, shortness of breath Cardiac: denies: chest pain, irregular heart rate, lightheadedness, palpitations Gastrointestinal/Abdominal: denies: abdominal pain, diarrhea, nausea, vomiting, blood streaked stools Genitourinary: See HPI Musculoskeletal: denies: joint pain, muscle pain Skin: denies: lesions, rash, jaundice, bruising Neurological: denies: headache, numbness, paresthesia, tingling, dizziness, weakness Hematologic/Lymphatic: denies: blood clots, easy bleeding, easy bruising Immunologic/allergic: denies: HIV/AIDS, transplant EXAM: GENERAL: Morbidly obese and in no acute distress. HEAD: Atraumatic, normocephalic. EYES: Pupils equal round and reactive to light, extraocular movements intact, sclera anicteric, conjunctiva are normal. ENT: TMs normal, nares patent, oropharynx clear without exudates. Moist mucous membranes. NECK: Normal range of motion, supple without lymphadenopathy or JVD. LUNGS: Breath sounds clear to auscultation bilaterally and equal. No wheezes rales or rhonchi. HEART: Regular rate and rhythm without murmurs, rubs or gallops. ABDOMEN: Soft, nontender, normoactive bowel sounds. No guarding, no rebound. No masses appreciated. BACK: No CVA tenderness, no spinal tenderness, step-offs or deformities EXTREMITIES: Moving all extremities without difficulty, pain in left leg from knee to foot, pain in right arm shoulder to hand. Normal range of motion, no pitting or edema. No clubbing or cyanosis. NEUROLOGICAL: Cranial nerves II through XII grossly intact. Normal speech, normal gait. 5/5 strength, normal movement in all extremities, normal sensation PSYCH: Normal mood, normal affect. SKIN: Warm, dry, normal turgor, no visible rashes or lesions. Source: Patient Exam Limitations: No limitations - Medical/Surgical History Hx Asthma: Yes Hx Chronic Respiratory Disease: Yes Hx Diabetes: Yes Hx Cardiac Disease: No Hx Renal Disease: Yes Hx Cirrhosis: No Hx Alcoholism: No Hx HIV/AIDS: No Hx Splenectomy or Spleen Trauma: No Other PMH: HTN, hypothyroid, diabetes II, asthma,. chronic pain, obesity, chronic O2 use 3.5 L night/CPAP SRUTHI, kidney cancer 2002 (partial kidney on left side), sinus surgeries for COPD, oral thrush, chronic pain, spine. - Family History Significant Family History: No pertinent family hx - Social History Smoking Status: Never smoked Alcohol Use: Sober Drug Use: None Constitutional: Initial Vital Signs Temperature (C) 37.0 C 09/15/17 14:12 Heart Rate 87 09/15/17 14:12 Respiratory Rate 19 09/15/17 14:12 Blood Pressure 160/106 H 09/15/17 14:12 O2 Sat (%) 92 09/15/17 14:12 O2 Delivery Mode Room Air Allergies/Adverse Reactions: erythromycin base [Erythromycin Base] Allergy (Severe, Verified 01/27/17 13:24) Rash Penicillins Allergy (Severe, Verified 01/27/17 13:24) Rash Shellfish *RETIRED-07/05/12 [Shellfish] Allergy (Severe, Verified 01/27/17 13:24 ) Rash Sulfa (Sulfonamide Antibiotics) Allergy (Severe, Verified 01/27/17 13:24) Rash codeine Allergy (Unknown, Verified 01/27/17 13:24) "ANTIBIOTICS" Allergy (Severe, Uncoded 12/01/11 21:02) Other-Enter Comments Home Medications: Medication Instructions Recorded Azelastine [Astelin] 2 sprays NASAL BID PRN 12/01/11 Thyroid,Pork [ARMOUR THYROID] 90 mg PO DAILY 12/01/11 amLODIPine BESYLATE [Norvasc 10 mg 10 mg PO DAILY 12/01/11 (*)] Albuterol [Proventil Neb] 3 ml IH QID PRN 04/19/16 Lisinopril [Zestril 5 mg (*)] 5 mg PO DAILY 04/19/16 morphINE SR [MS Contin/Oramorph 60 60 mg PO BID@06,18 04/19/16 mg (*)] morphINE IR [morphINE IR 15 mg (*)] 15 mg PO BID PRN 04/20/16 Clotrimazole [Mycelex (*)] 10 mg PO 5XD 01/27/17 Sennosides/Docusate Sodium 1 - 2 tab PO BID PRN 01/27/17 [Senokot-S] Albuterol [Ventolin Hfa Inhaler] 1 - 2 puffs IH Q4 PRN 09/15/17 Insulin Detemir [Levemir] 16 unit SQ BID 09/15/17 Medical Decision Making - Diagnostics Imaging Results: Imaging Impressions Forearm X-Ray 09/15/17 14:17 Impression: Negative. No acute fracture. Humerus X-Ray 09/15/17 14:17 Impression: Negative. No acute fracture. Ankle X-Ray 09/15/17 14:18 Impression: Negative. No acute fracture. Knee X-Ray 09/15/17 14:18 Impression: 1. No acute fracture or effusion. 2. Moderate severe tricompartmental osteoarthritis. ED Course/Re-evaluation: 3:40 p.m. we discussed her x-ray and lab results which are reassuring. She states that she does feel able to go home. She is bed-bound and homebound typically other than walking herself to the kitchen and then sitting in a chair while she prepares meals. She lives alone. She has 2 home visit a week on Thursday and Thursday. She states that that was cut back 2 years ago. I am worried that this is inadequate. If she goes home I would at least like her to be checked on tomorrow. I discussed this with case management and they will see if this can be arranged. She will likely need to be taken home by ambulance because she is not really ambulatory at baseline. 4:10 p.m. the patient states that she does not feel safe going home. She cannot get herself around the house in as a now having increased pain. Case management is talking to her. She tells me she can barely walk at baseline only has 2 visits a week. I will admit for pain control and further case management evaluation. 4:45 p.m. case management felt that the patient could likely go home and they arranged PT OT evaluation tomorrow at her home. She discussed the case with her primary Dr. Tian Garcia who agreed. The patient however refused to go home and states that she does not wish to do PT OT and that she cannot get out of bed. 4:50 p.m. I discussed the case with Dr. Silva who will admit. Differential Diagnosis: Partial list of the Differential diagnosis considered include but were not limited to; contusion, fracture, rhabdo and although unlikely based on the history and physical exam, I also considered arrhythmia, infection, head injury , neck injury, spinal injury. I discussed these differential diagnoses and the plan with the patient as well as the usual and expected course. The patient understands that the diagnosis is provisional and that in medicine we are not always correct and that further workup is often warranted. Usual and customary warnings were given. All of the patient's questions were answered. The patient was instructed to return to the emergency department should the symptoms at all worsen or return, otherwise to followup with the physician as we discussed. - Data Points Laboratory Results: Laboratory Results 09/15/17 14:20 09/15/17 14:20 09/15/17 09/15/17 09/15/17 14:20 14:20 14:20 WBC 9.52 10^3/uL H 10^3/uL (3.80-9.50) RBC 5.24 10^6/uL 10^6/uL (4.18-5.33) Hgb 14.8 g/dL g/dL (12.6-16.3) Hct 45.2 % % (38.0-47.0) MCV 86.3 fL fL (81.5-99.8) MCH 28.2 pg pg (27.9-34.1) MCHC 32.7 g/dL g/dL (32.4-36.7) RDW 13.2 % % (11.5-15.2) Plt Count 300 10^3/uL 10^3/uL (150-400) MPV 9.3 fL fL (8.7-11.7) Neut % (Auto) 70.6 % % (39.3-74.2) Lymph % (Auto) 23.7 % % (15.0-45.0) [place] % (Auto) 4.0 % L % (4.5-13.0) Eos % (Auto) 0.8 % % (0.6-7.6) Baso % (Auto) 0.4 % % (0.3-1.7) Nucleat RBC Rel Count 0.0 % % (0.0-0.2) Absolute Neuts (auto) 6.71 10^3/uL H 10^3/uL (1.70-6.50) Absolute Lymphs (auto) 2.26 10^3/uL 10^3/uL (1.00-3.00) Absolute Monos (auto) 0.38 10^3/uL 10^3/uL (0.30-0.80) Absolute Eos (auto) 0.08 10^3/uL 10^3/uL (0.03-0.40) Absolute Basos (auto) 0.04 10^3/uL 10^3/uL (0.02-0.10) Absolute Nucleated RBC 0.00 10^3/uL 10^3/uL (0-0.01) Immature Gran % 0.5 % % (0.0-1.1) Immature Gran # 0.05 10^3/uL 10^3/uL (0.00-0.10) PT 14.4 SEC SEC (12.0-15.0) INR 1.13 (0.83-1.16) APTT 26.3 SEC SEC (23.0-38.0) Sodium 136 mEq/L mEq/L (134-144) Potassium 4.3 mEq/L mEq/L (3.5-5.2) Chloride 99 mEq/L mEq/L (97-110) Carbon Dioxide 26 mEq/l mEq/l (22-31) Anion Gap 11 mEq/L mEq/L (8-16) BUN 8 mg/dL mg/dL (7-23) Creatinine 0.7 mg/dL mg/dL (0.6-1.0) Estimated GFR > 60 Glucose 206 mg/dL H mg/dL (70-100) Calcium 9.1 mg/dL mg/dL (8.5-10.4) Creatine Kinase 38 IU/L IU/L (0-156) Medications Given: Discontinued Medications Sodium Chloride (Ns) 1,000 mls @ 0 mls/hr IV EDNOW ONE; Wide Open PRN Reason: Protocol Stop: 09/15/17 14:19 Last Admin: 09/15/17 15:01 Dose: 1,000 mls Morphine Sulfate (Morphine) 10 mg IVP EDNOW ONE Stop: 09/15/17 14:17 Last Admin: 09/15/17 14:26 Dose: 10 mg Departure - Departure Disposition: [facility]patient Acute Clinical Impression: Fall Qualifiers: Encounter type: initial encounter Qualified Code(s): W19.XXXA - Unspecified fall, initial encounter Contusion Qualifiers: Encounter type: initial encounter Contusion area: upper arm Laterality: right Qualified Code(s): S40.021A - Contusion of right upper arm, initial encounter Condition: Fair
[2017-09-15 14:27] LABS: % IMMATURE GRANULYOCYTES 0.5 % (0.0-1.1); ABSOLUTE IMMATURE GRANULOCYTES 0.05 10^3/uL (0.00-0.10); ADD DIFF? NO; ATYPICAL LYMPHOCYTE FLAG 10 (0-99); HEMATOCRIT 45.2 % (38.0-47.0); HEMOGLOBIN 14.8 g/dL (12.6-16.3); LEFT SHIFT FLG 0 (0-99); MEAN CELL HEMOGLOBIN 28.2 pg (27.9-34.1); MEAN CELL HEMOGLOBIN CONCENTR. 32.7 g/dL (32.4-36.7); MEAN CELL VOLUME 86.3 fL (81.5-99.8); MEAN PLATELET VOLUME 9.3 fL (8.7-11.7); PLATELET COUNT 300 10^3/uL (150-400); RED BLOOD CELL COUNT 5.24 10^6/uL (4.18-5.33); RED CELL DISTRIBUTION WIDTH 13.2 % (11.5-15.2)
[2017-09-15 14:28] LABS: ADD MORPH? NO; ADD SCAN? NO; FRAGMENT RBC FLAG 0 (0-99); LIPEMIA HEMOLYSIS FLAG 80 (0-99); PLATELET CLUMPS FLAG 10 (0-99)
[2017-09-15 14:37] LABS: APTT 26.3 SEC (23.0-38.0); INR 1.13 (0.83-1.16); PROTIME(PATIENT) 14.4 SEC (12.0-15.0)
[2017-09-15 14:39] LABS: ANION GAP 11 mEq/L (8-16); CALCIUM 9.1 mg/dL (8.5-10.4); CARBON DIOXIDE 26 mEq/l (22-31); CHLORIDE 99 mEq/L (97-110); CREATININE 0.7 mg/dL (0.6-1.0); GLOMERULAR FILTRATION RATE > 60; GLUCOSE 206 mg/dL (70-100); POTASSIUM 4.3 mEq/L (3.5-5.2); SODIUM 136 mEq/L (134-144)
--- NOTE | 2017-09-15 17:21 | ASMTCMCOM ---
CM Note CM Note Notes: Danuta is brought to the ER via EMS s/p fall at home last evening. Please see ER report for details. I Met with patient to evaluate needs of increased HH services vs "admission" (Patient request). Patient is current with HH services; [facility] [phone]. She has a flower grader (Hilda) who comes out on Thursday's and Thursday's to assist with home making, shopping, and taking patient to her scheduled appointments at [facility], etc. When asked, patient states that she would like more HH services at home, but has not been able to qualify for them. Patient admits to being primarily "bed bound" and able to ambulate only short distances. She denies having a walker or desire to use one. She states that her mobile home is small enough that this is not an issue as she can get to the bathroom, kitchen as needed, "as long as I do not have to move too much". Patient tells me that she believes she should be admitted for a day or two to be sure she is not too uncomfortable from her fall. I have contacted Zee at [facility] to notify of patient's visit to the ER and to inquire about a home safety evaluation to assess for increased HH needs/services. Zee confirms that patient is current with a ATTENDANT [employer] (Hilda) and states that they can get PT out as soon as tomorrow to evaluate as long as they have a signed physician's order. I have called the [facility] and spoken with Dr. Benson. He believes this would be a good option for the patient if she is willing. I have discussed this with Dr. Bejarano (ER physician) and he is in agreement as well. Upon discussion of this potential plan with patient, she now tells me that HH is unable to help her inside her home due to an ongoing mold issue. I explained to her that I discussed additional services with both [facility] as well as Dr. Benson and they agree to this idea. Patient states that she does not want PT or anyone to come out and tell her she needs to move more, because this is uncomfortable. I have encouraged her to consider this option so that she could be evaluated for more services in her home. Patient tells me this is not what she wants and that she would like to be admitted. I have informed DR. Bejarano, as well as Rachel at [facility] of patient's wishes and likely admission. Date Signed: 09/15/2017 05:21 PM Electronically Signed By:Cinthya Boyle RN
[2017-09-15] MEDS ORDERED: ONDANSETRON 4 MG/2 ML VIAL IVP PRN (18:07)
[2017-09-15] MEDS ORDERED: ONDANSETRON DISINTEGRATING 4 MG TAB PO PRN (18:07)
[2017-09-15] MEDS ORDERED: ACETAMINOPHEN 325 MG TAB PO PRN (18:07)
[2017-09-15] MEDS ORDERED: D50W 25 GM/50 ML SYR IVP PRN (18:10)
[2017-09-15] MEDS ORDERED: AZELASTINE NASAL MDI EACHNARE PRN (18:36)
[2017-09-15] MEDS ORDERED: SENNOSIDES/DOCUSATE SODIUM TAB PO PRN (18:36)
[2017-09-15] MEDS ORDERED: ALBUTEROL 3 ML DEYVIAL IH PRN (18:36)
--- NOTE | 2017-09-15 19:12 | GHP ---
[f rep st] HISTORY AND PHYSICAL DATE OF ADMISSION: 09/15/2017 CHIEF COMPLAINT: Fall. HISTORY OF PRESENT ILLNESS: The patient is a 67-year-old female with multiple medical problems inclu ding poorly controlled diabetes, neuropathy, obesity, chronic hypoxemic respiratory failure in the se tting of obesity hypoventilation and obstructive sleep apnea who presents to the emergency department after a fall. She reports difficulty with activity in the home and frequently has to sit down in he r kitchen. She lizet from a seated position in her kitchen last night and fell over, striking a cabin et with her right side and then landing on the ground on her left side. She was then unable to get u p. She scooched herself into the bedroom. It was not until noon today when a home health worker cam marlys that she was discovered on the ground. She denies any fevers or chills. There has been no change in her chronic urinary frequency symptoms. She has no abdominal pain, nausea, or vomiting. She jasmin es chest pain or shortness of breath. She denies headaches, vision changes, or focal weakness. She does report bilateral lower extremity paresthesias as well as chronic pain for which she takes morphi ne. She has previously declined to try any neuropathic pain agents such as gabapentin or Lyrica. In addition, she does not take her insulin for her diabetes. COURSE IN EMERGENCY ROOM: In the emergency department, she had multiple x-rays which were negative f or fracture. There was an effort made to get her discharged home and Case Management was involved. However, the patient did not feel safe discharging and she was admitted to the hospital for observati on and acute therapy evaluations. PAST MEDICAL HISTORY: 1. Diabetes mellitus type 2, poorly controlled, noncompliant with insulin therapy. 2. History of E coli UTI and sepsis. 3. Severe obesity. 4. Lumbar stenosis, evaluated by Neurosurgery in March 2016, not deemed a surgical candidate. 5. Peripheral neuropathy. 6. Chronic nephrolithiasis, status post ureteral stents. 7. Chronic pain with chronic continuous opioid dependence. 8. Fibromyalgia. 9. Pulmonary nodules. 10. Paroxysmal atrial fibrillation. 11. Obstructive sleep apnea, on CPAP. 12. History of renal cell carcinoma. PAST SURGICAL HISTORY: 1. Status post uvulopalatopharyngoplasty. 2. Adenectomy. 3. Diaphragmatic hernia repair. 4. Left partial nephrectomy 2002. 5. Lithotripsy 2011. MEDICATIONS: Please see [email or web address] for completed outpatient medication list. ALLERGIES: Erythromycin, penicillin, shellfish, sulfa, codeine. SOCIAL HISTORY: The patient lives independently and has home health care providers. She is having t rouble performing her activities of daily living. She denies alcohol or drug use. FAMILY HISTORY: Positive for diabetes in her father. REVIEW OF SYSTEMS: A 10-point review of systems was performed and is negative except as per HPI. OBJECTIVE: VITAL SIGNS: Temperature is 37 degrees, blood pressure 133/91, heart rate 88, respirator y rate 16, she is 93% on room air. GENERAL: The patient is awake, alert, oriented, in no acute dist ress. She is obese. HEENT: Head is atraumatic, normocephalic. Pupils equal, round, and reactive t o light. Extraocular muscles intact. Oropharynx is clear. Mucous membranes are moist. NECK: Supp le. There is no JVD. HEART: Regular rate and rhythm. LUNGS: Decreased breath sounds. No wheezes , rales, or rhonchi. ABDOMEN: Soft, obese, nondistended, nontender. EXTREMITIES: She has 1+ bilat eral lower extremity edema with some excoriations on the dorsal aspect of her feet. EXTREMITIES: Wa rm. Sensation is intact in her distal lower extremities bilaterally. NEUROLOGIC: The patient moves all 4 extremities. There are no focal neuro deficits. LABORATORY DATA: CBC reveals a white blood cell count of 9.5, hemoglobin is normal. INR is 1.13. B asic metabolic panel shows electrolytes are normal. Blood sugar is 206. CK is 38. Knee x-ray, ankle x-ray, humerus x-ray, and forearm x-rays are all negative for fracture. ASSESSMENT AND PLAN: The patient is a 67-year-old female with a history of poorly controlled diabete s, obesity, and peripheral neuropathy who was admitted to the hospital after a fall. 1. Fall. I suspect her neuropathic symptoms may be causative. She has declined neuropathic pain me dications in the past, though was agreeable to trying low-dose gabapentin. She has no fevers or sign s of infection, but she does have a history of recurrent urinary tract infection with Escherichia col i on her last 8 urine cultures. I suspect she may be colonized and I will refrain from performing a urinalysis unless she develops symptoms or fever. PT, OT are ordered. I discussed with her she may be a candidate for SNF rehab for ongoing strengthening given her very poor mobility and functional st atus. She is not interested in this. 2. Type 2 diabetes mellitus. Her blood sugar on arrival was 206. Previous A1c 6 months ago was 11. We will repeat an A1c. She is apparently noncompliant with her insulin. Will order sliding scale insulin here for glycemic control and continue her Levemir. It is not clear why she is not on metfor min, though could consider adding this if she is agreeable given her normal renal function. 3. Chronic urinary frequency. There has been no change in her urinary symptoms. 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 If she has worsening symptoms or fevers would check a urin alysis. For now will observe off antibiotics. 4. Chronic pain with chronic continuous opioid dependence. I will continue her outpatient doses of morphine and as above, the patient is agreeable to trying low-dose Neurontin. 5. Obesity. This complicates all aspects of care. 6. Paroxysmal atrial fibrillation. She is currently rate controlled and has no symptoms of palpitat ions or chest pain. 7. Chronic hypoxemic respiratory failure. She reportedly uses 3-1/2 L of oxygen at night. However, she is saturating 93% on room air here. This is likely hastened by obesity hypoventilation and obst ructive sleep apnea. Will provide supplemental oxygen as needed. 8. Obstructive sleep apnea. The patient has been noncompliant with CPAP. 9. Deep venous thrombosis prophylaxis. Patient is high risk, will start Lovenox. CODE STATUS: Patient is full code. DISPOSITION: Patient is admitted to observation status. Depending on her therapy evaluations, she m ay be a candidate for discharge tomorrow with increased home health care services. Otherwise, consid eration could be given to SNF though it sounds that she will not be agreeable to that plan. /[id number]/MODL
[2017-09-15 20:08] LABS: HEMOGLOBIN A1C 9.4 % (4.0-6.0)
[2017-09-15] MEDS: morphINE SR 60 MG TAB PO SCH (20:59)
[2017-09-15] MEDS: GABAPENTIN 100 MG CAP PO SCH (20:59)
[2017-09-15] MEDS ORDERED: INSULIN DETEMIR 12 UNIT SQ SCH (21:00)
[2017-09-15] MEDS: INSULIN GLARGINE 100 UNITS/ML SYRINGE SC SCH (22:44)
[2017-09-15] MEDS: CLOTRIMAZOLE 10 MG TROCHE PO SCH (22:46)
[2017-09-16 05:22] LABS: % IMMATURE GRANULYOCYTES 0.5 % (0.0-1.1); ABSOLUTE IMMATURE GRANULOCYTES 0.05 10^3/uL (0.00-0.10); ADD DIFF? NO; ADD MORPH? NO; ADD SCAN? NO; ATYPICAL LYMPHOCYTE FLAG 0 (0-99); FRAGMENT RBC FLAG 0 (0-99); HEMOGLOBIN 14.1 g/dL (12.6-16.3); LEFT SHIFT FLG 0 (0-99); LIPEMIA HEMOLYSIS FLAG 80 (0-99); MEAN CELL HEMOGLOBIN 27.3 pg (27.9-34.1); MEAN CELL HEMOGLOBIN CONCENTR. 31.3 g/dL (32.4-36.7); MEAN PLATELET VOLUME 9.5 fL (8.7-11.7); PLATELET CLUMPS FLAG 0 (0-99); PLATELET COUNT 295 10^3/uL (150-400); RED BLOOD CELL COUNT 5.17 10^6/uL (4.18-5.33); RED CELL DISTRIBUTION WIDTH 13.2 % (11.5-15.2)
[2017-09-16] MEDS: morphINE SR 60 MG TAB PO SCH (05:25)
[2017-09-16] MEDS: CLOTRIMAZOLE 10 MG TROCHE PO SCH ×3 (05:34→15:54)
[2017-09-16] MEDS: GABAPENTIN 100 MG CAP PO SCH (08:15)
[2017-09-16] MEDS: INSULIN LISPRO 100 UNIT/ML SC SCH ×2 (08:17→13:08)
[2017-09-16] MEDS: INSULIN GLARGINE 100 UNITS/ML SYRINGE SC SCH (08:44)
[2017-09-16] MEDS ORDERED: LISINOPRIL 5 MG TAB PO SCH (09:00)
[2017-09-16] MEDS ORDERED: ENOXAPARIN 40 MG/0.4 ML SYR SC SCH (09:00)
[2017-09-16] MEDS ORDERED: THYROID 60 MG TAB PO SCH (10:00)
[2017-09-16 12:43] VITALS: BP 122/74; PULSE 87; RESP 17; TEMP 98.1; O2SAT 95
--- NOTE | 2017-09-16 15:01 | PDIAF ---
- Diagnosis Diagnosis: Mechanical Fall, Morbid Obesity, Uncontrolled DM, Chronic Urinary Frequency Code Status: Full Code - Medication Management Discharge Medications: Medications to Continue on Transfer Azelastine [Astelin] 2 sprays NASAL BID PRN 12/01/11 [Last Taken 04/16/16] Thyroid,Pork [ARMOUR THYROID] 90 mg PO DAILY 12/01/11 [Last Taken 04/19/16] Albuterol [Proventil Neb] 3 ml IH QID PRN 04/19/16 [Last Taken Unknown] Lisinopril [Zestril 5 mg (*)] 5 mg PO DAILY 04/19/16 [Last Taken 04/19/16] morphINE SR [MS Contin/Oramorph 60 mg (*)] 60 mg PO BID@,04/19/16 [Last Taken 04/19/16 06:00] morphINE IR [morphINE IR 15 mg (*)] 15 mg PO BID PRN 04/20/16 [Last Taken Unknown] Clotrimazole [Mycelex (*)] 10 mg PO 5XD 01/27/17 [Last Taken Unknown] Sennosides/Docusate Sodium [Senokot-S] 1 - 2 tab PO BID PRN 01/27/17 [Last Taken Unknown] Albuterol [Ventolin Hfa Inhaler] 1 - 2 puffs IH Q4 PRN 09/15/17 [Last Taken Unknown] Insulin Detemir [Levemir] 16 unit SQ BID 09/15/17 [Last Taken Unknown] Gabapentin [Neurontin 100 MG (*)] 100 mg PO BID #60 cap 09/16/17 [Last Taken Unknown] amLODIPine BESYLATE [Norvasc 5 mg (*)] 5 mg PO DAILY #30 tab 09/16/17 [Last Taken Unknown] Electroplater Antibiotics: NA Discharge Medications: Refer to the Discharge Home Medication list for PRN reason. PICC Care - Routine: N/A - Orders Services needed: Home Care, Registered Nurse, Master Dietary Supervisor Home Care Face to Face: I certify that this patient was under my care and that I had the required [id number] encounter meeting the encounter requirements on the discharge day. My findings support the fact that the patient is homebound as defined in Home Care Face to Face Continued: CMS Chapter 7 Medicare Benefits Manual 30.1.1 , The condition of the patient is such that there exists a normal inability to leave home and consequently, leaving home would require a considerable and taxing effort. Isolation Type: None Oxygen: 2L NC chronically Diet Recommendation: ADA 2000 consistent carb Weigh Patient: weekly Yin: Not applicable Equipment: walker as needed - Follow Up Care Current Providers and Referrals: Patient,NotPresent [Unknown] - As per Instructions [facility],. [Clinic] - follow up in 1 week (please schedule follow-up with Dr. Garcia)
--- NOTE | 2017-09-16 16:07 | ASMTCMCOM ---
CM Note CM Note Notes: Pt medically stable for d/c and agreeable to HHC RN/COPY CENTER ASSOCIATE with [facility], referral sent in [employer]. While [facility] can staff the skilled HHC, pt feels it may be best to start new with a new agency for the skilled HHC. Pt current with [facility] for unskilled care paid for through [facility]. Nisreen with [facility] [phone] reports pt caser in [place] is out of town but is able to see pt has 10 hours a week of unskilled care which is a lot and since pt is at baseline with no additional medical necessity, no additional hours can be added. Pt does not think she will benefit from home PT/OT but is agreeable to RN for diabetes/med mngmt and an COPY CENTER ASSOCIATE to assist w psychosocial issues. Pt states she has enough food for the next couple of days until her home health aid visits again on Thursday, declines need for Meals on Wheels. Pt has an appointment scheduled with her PCP Dr. Garcia at [facility] for Thursday09/22/17. [facility] set up w [facility] paid for by Medicaid for 16:30 as pt has no one who can take her home. Pt states she has 1 friend who assists her with transportation to medical appointments and she is unavailable today. Date Signed: 09/16/2017 04:07 PM Electronically Signed By:ALFONSO David
--- NOTE | 2017-09-16 19:48 | PDDCSUM ---
Discharge Summary Discharge Summary: DISCHARGE SUMMARY FOLLOW-UP ITEMS: PCP follow-up of urinary symptoms DATE OF ADMISSION: 09/15/2017 DATE OF DISCHARGE: 09/16/2017 DISCHARGE DIAGNOSES: 1. Acute mechanical fall 2. Chronic hypoxic respiratory failure 3. Chronic urinary frequency 4. Uncontrolled diabetes mellitus with hyperglycemia 5. 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 Hypertension with orthostasis 7. Morbid obesity with BMI 42 CONSULTATIONS: None PROCEDURES / IMAGING: X-ray of the knee, ankle, humerus, forearm, demonstrating no fractures CHIEF COMPLAINT: Acute mechanical fall, chronic urinary frequency SUBJECTIVE: Patient is feeling well at time discharge, she continues to have urinary frequency, she is able to get herself in and out of bed independently PHYSICAL EXAM ON DISCHARGE: Systolic blood pressure is 130, heart rate 80-90, positive orthostasis, chronically ill-appearing, morbidly obese, level stare, tangential but redirectable, cooperative, manipulative LABS ON DISCHARGE: Hemoglobin A1c 9.4%, CPK normal, glucose 155, white blood cell count 9600 HOSPITAL COURSE BY PROBLEM: The patient presented with acute mechanical fall in the setting of morbid obesity and propensity for falls. Her x-rays demonstrated no evidence of fractures, and she did not have any significant pain at time of discharge. We did recommend initiation of gabapentin for some neuropathy which is likely secondary to her uncontrolled diabetes, and low-dose was initiated at this time. I suspect that the most likely cause of her fall was purely mechanical, as the patient has difficulty getting in and out of bed, although she is able to do it independently, as I have observed during her occupational therapy evaluation. She was seen in consultation by both Physical and Occupational therapy, who did clear her for discharge home, but did recommend home physical and occupational therapy services. The patient has declined, as the patient is determined not to utilize the services at home. The patient was noted to have positive orthostasis, but her systolic blood pressure was not arrange which would otherwise produce any symptoms, given her underlying hypertension. That being said, the patient is at risk for symptomatic orthostasis, most likely secondary to autonomic insufficiency in the setting of uncontrolled diabetes. Consequently, I have recommended reducing her home dosage of amlodipine, to provide her with a safe for blood pressure range, so that she does not become symptomatically orthostatic if she transiently experiences low oral intake of solids or liquids. The patient continued to express that she has urinary frequency, and this has been extensively evaluated in the past, both at this hospital as well as in the outpatient urology setting. Given her normal white blood cell count, absence of fever, and absence of any other new symptoms, it is unlikely that the patient is experiencing an acute urinary tract infection, and most likely has a combination of urinary bacterial colonization as well as overactive bladder or sphincter insufficiency. We have extensively reviewed the patient's outpatient urology records, and she has been atypical and non adherent patient in numerous urology office, and is currently being managed at her primary care provider office. She will continue to follow up with primary care provider for assistance with this issue. The patient is also notably uncontrolled with her diabetes, and this is secondary to patient choice, as she does not adhere to her recommended insulin regiment. Consequently, her hyperglycemia most likely exacerbates her urinary frequency, as this is a known side effect of hyperglycemia. That being said, the patient is resistant to many of the productive recommendations which provided her during this hospitalization as well as in the past, given her likely underlying personality disorder, which renders the patient to be highly demanding, manipulative of her care providers, and ultimately non adherent to medical recommendations with which she does not agree. The patient lacks insight into this issue, and she is not currently receiving any mental health assistance. I recommend that her primary care provider office continue to offer this patient social work assistance, and the patient has agreed to such assistance with home care at discharge. DISCHARGE MEDICATIONS: Please see official discharge medication reconciliation sheet in chart , continue home medications with the reduction in amlodipine to 5 mg daily, initiation of gabapentin. DISCHARGE INSTRUCTIONS: Please follow up with primary care provider office.
[2017-09-17] MEDS ORDERED: amLODIPine BESYLATE 5 MG TAB PO SCH (09:00)
== END 2017-09-16 16:53 | disposition home health service (06) ==
LOC: EDUNIT# → F3N 17:34
PROVIDERS: ADMIT Hospitalist; ATTEND Internal Medicine
DX: S49.91XA Unspecified injury of right shoulder and upper arm, initial encounter (principal); S59.911A Unspecified injury of right forearm, initial encounter; S89.92XA Unspecified injury of left lower leg, initial encounter; S99.912A Unspecified injury of left ankle, initial encounter; W01.198A Fall on same level from slipping, tripping and stumbling with subsequent striking against other object, initial encounter; Y92.000 Kitchen of unspecified non-institutional (private) residence as the place of occurrence of the external cause; E66.01 Morbid (severe) obesity due to excess calories; Z68.41 Body mass index [BMI] 40.0-44.9, adult; J96.11 Chronic respiratory failure with hypoxia; R35.0 Frequency of micturition; E11.65 Type 2 diabetes mellitus with hyperglycemia; E11.40 Type 2 diabetes mellitus with diabetic neuropathy, unspecified; I10 Essential (primary) hypertension; F11.20 Opioid dependence, uncomplicated
CPT/HCPCS: 73060; 73090; 73564; 73610; 96361; 96374; 97161; 97165; 99285; G0378; J1650; J1815

== ENCOUNTER 2018-11-09 13:10 | Inpatient (IN) | payer MEDICAID ==
[2018-11-09] MEDS ORDERED: ASPIRIN 81 MG CHEWABLE TAB PO ONE (13:15)
[2018-11-09] MEDS ORDERED: NS 500 ML IV ONE (13:15)
[2018-11-09 13:25] LABS: PLATELET COUNT 316 10^3/uL (150-400)
[2018-11-09 13:34] LABS: INR 1.03 (0.83-1.16); PROTIME(PATIENT) 13.7 SEC (12.0-15.0)
--- NOTE | 2018-11-09 14:10 | EDPHY ---
H & P Time Seen by Provider: 11/09/18 13:14 HPI/ROS: HPI Chest pain. 68-year-old female by ambulance. This patient states that she developed a cramping like right-sided parasternal chest pain underneath her right breast yesterday. She reports the pain has been made worse with deep breathing. Because of this she has had a sensation of shortness of breath and difficulty taking a deep breath. She reports the pain is somewhat better today but has been persistent. She went to her primary care physician at [facility] and was told to come to the emergency department before being evaluated. ROS: Constitutional: No fever, no chills. No weakness. Eyes: No discharge. No changes in vision. ENT: No sore throat. No nasal congestion or rhinorrhea. Respiratory: No cough. As. Cardiac: As, no palpitations. Gastrointestinal: No abdominal pain, no vomiting, no diarrhea. Genitourinary: No hematuria. Urinary frequency secondary to chronic UTI. Musculoskeletal: No back pain. No neck pain. No myalgias or arthralgias. Skin: No rashes. Neurological: No headache. No focal weakness or altered sensation. Past medical history: Hypertension, hypothyroid, type 2 diabetes, asthma, chronic pain, obesity, sleep apnea, kidney cancer with partial nephrectomy on left side, sinus surgeries, COPD, oral thrush, chronic pain. She is on oxygen, 3 in a 0.5 L 24-7. Primary care is through [facility]. Social history: Former smoker. No alcohol. Lives alone in a trailer home. Reports she does have home health care. Physical Exam: General Appearance: Alert, morbidly obese, she is not in distress. On nasal cannula oxygen. This patient is responding to questions appropriately and in full sentences. This patient appears well-hydrated and well-nourished. Eyes: Pupils equal and round no pallor or injection. No lid edema, erythema or injection. Respiratory: There are no retractions, lungs are clear to auscultation anteriorly with good air movement bilaterally. Cardiovascular: Regular rate and rhythm. Borderline tachycardia. No murmur appreciated. Gastrointestinal: Obese habitus. Abdomen is soft and nontender, no masses, bowel sounds normal. No focal tenderness at McBurney's point. No Mendoza sign. Neurological: Motor sensory function is grossly intact. Cranial nerves are normal. Gait is normal. Skin: Warm and dry, no rashes. Musculoskeletal: Neck is supple and nontender. Extremities are symmetrical. All joints range without pain or impingement. Psychiatric: No agitation. No depression. Database: EKG: EKG time is 1:23 p.m.; EKG shows a narrow complex sinus tachycardia with a ventricular rate of 104. The VA, QRS, QT intervals are within normal limits. There are no ST-T wave changes indicative of ischemic or injury pattern. No evidence of right heart strain. Interpreted by me. Imaging: Chest x-ray AP portable; probable cardiomegaly. Likely bibasilar atelectasis much more prominent on the right side. Possible infiltrative process on the right. Poor insufflation. No pneumothorax. Interpreted by me. CT angiogram of chest; significant for a right lobar pneumonia. No PE. Results were discussed with staff radiologist Dr. López. Procedures: Emergency department course: Triage vital signs reviewed. She is mildly tachycardic. She is afebrile. Pulse oximetry on 3 in a 0.5 L nasal cannula oxygen is 96%. IV was placed. EKG obtained and reviewed by myself. She had been given 324 mg of chewed aspirin by EMS. 2:05 p.m., patient re-evaluated. She is resting comfortably at this time. She describes having a very low level of chest discomfort at this time. She appears comfortable. Her chest x-ray is concerning for possible infiltrative process. CT angiogram of her chest will be obtained. Her creatinine is within normal limits. Plan for admission to the hospitalist service discussed with the patient. She endorses. 2:20 p.m., spoke to on-call hospitalist, Dr. Moses. Case discussed with him in detail. Results of CT scan of chest her currently pending. He accepts this patient for admission. He is also aware of the patient's chronic UTI and that we are trying to get a urine sample. 3:10 p.m., patient notified CT results and diagnosis of pneumonia. Blood cultures obtained. She will be started on broad-spectrum antibiotics, IV Rocephin and IV azithromycin in the emergency department. Diagnosis of pneumonia and results of CT discussed with admitting hospitalist Dr. Moses. The patient's remaining emergency department course under my care has been uneventful. Patient was admitted to telemetry in stable condition under care of the hospitalist service. Differential Diagnosis: The differential diagnosis on this patient includes but is not limited to acute coronary syndrome, pulmonary embolism, pneumonia, CHF. This represents a partial list of diagnoses considered. These considerations are based on history , physical exam, past history, reassessment and diagnostic testing. Smoking Status: Never smoked Constitutional: Initial Vital Signs Heart Rate 111 H 11/09/18 13:15 Respiratory Rate 16 11/09/18 13:15 Blood Pressure 141/93 H 11/09/18 13:15 O2 Sat (%) 96 11/09/18 13:15 O2 Delivery Mode Nasal Cannula O2 (L/minute) 2 Allergies/Adverse Reactions: erythromycin base [Erythromycin Base] Allergy (Severe, Verified 11/09/18 13:15) Rash Penicillins Allergy (Severe, Verified 11/09/18 13:15) Rash Shellfish *RETIRED-07/05/12 [Shellfish] Allergy (Severe, Verified 11/09/18 13:15 ) Rash Sulfa (Sulfonamide Antibiotics) Allergy (Severe, Verified 11/09/18 13:15) Rash codeine Allergy (Unknown, Verified 11/09/18 13:15) "ANTIBIOTICS" Allergy (Severe, Uncoded 11/09/18 13:15) Other-Enter Comments Home Medications: Medication Instructions Recorded Azelastine [Astelin] 2 sprays NASAL BID PRN 12/01/11 Thyroid,Pork [ARMOUR THYROID] 90 mg PO DAILY10 12/01/11 Albuterol [Proventil Neb] 3 ml IH QID PRN 04/19/16 Lisinopril [Zestril 5 mg (*)] 5 mg PO DAILY 04/19/16 morphINE SR [MS Contin/Oramorph 60 60 mg PO BID@,18 04/19/16 mg (*)] morphINE IR [morphINE IR 15 mg (*)] 15 mg PO BID PRN 04/20/16 Sennosides/Docusate Sodium 1 - 2 tab PO BID PRN 01/27/17 [Senokot-S] Albuterol [Ventolin Hfa Inhaler] 1 - 2 puffs IH Q4 PRN 09/15/17 Insulin Detemir [Levemir] 22 unit SQ BID 09/15/17 Terconazole 20 gm VG DAILY PRN 11/09/18 amLODIPine BESYLATE [Norvasc 10 mg 10 mg PO DAILY 11/09/18 (*)] Medical Decision Making - Diagnostics Imaging Results: Imaging Impressions Chest X-Ray 11/09/18 13:15 Impression: Alveolar opacities in the right mid to lower lobe and left lower lobe suggesting asymmetric pulmonary edema versus bilateral pneumonia. Findings and recommendations given to Lamar Victor MD, at 1425 hour, 11/09/2018. Final report concurs with initial preliminary interpretation. Chest/Thorax CTA 11/09/18 14:03 Impression: 1. Right upper lobe pneumonia and right hilar lymphadenopathy which is likely reactive. Continued radiographic surveillance is recommended to document resolution and exclude underlying mass. 2. No evidence of pulmonary embolism. 3. Ascending aortic aneurysm measuring up to 4.8 cm without evidence of dissection. 4. Thyroid nodules with dominant left lobe nodule measuring up to 2.2 cm. Further evaluation with thyroid ultrasound is recommended. Lamar Marcelo was notified of these findings by telephone at 3:00 PM on - Data Points Laboratory Results: Laboratory Results 11/09/18 13:15 11/09/18 13:15 11/09/18 11/09/18 11/09/18 13:18 13:15 13:15 WBC RBC Hgb Hct MCV MCH MCHC RDW Plt Count MPV Neut % (Auto) Lymph % (Auto) [place] % (Auto) Eos % (Auto) Baso % (Auto) Nucleat RBC Rel Count Absolute Neuts (auto) Absolute Lymphs (auto) Absolute Monos (auto) Absolute Eos (auto) Absolute Basos (auto) Absolute Nucleated RBC Immature Gran % Immature Gran # PT INR APTT D-Dimer Sodium Potassium Chloride Carbon Dioxide Anion Gap BUN Creatinine Estimated GFR Glucose Calcium POC Troponin I 0.02 ng/mL ng/mL (0.00-0.08) NT-Pro-B Natriuret Pep TSH 2.650 uIU/mL uIU/mL (0.465-4.680) Urine Color YELLOW Urine Appearance HAZY Urine pH 7.0 (5.0-7.5) Ur Specific [place] 1.030 (1.002-1.030) Urine Protein 1+ H (NEGATIVE) Urine Ketones NEGATIVE (NEGATIVE) Urine Blood 3+ H (NEGATIVE) Urine Nitrate NEGATIVE (NEGATIVE) Urine Bilirubin NEGATIVE (NEGATIVE) Urine Urobilinogen NEGATIVE EU EU (0.2-1.0) Ur Leukocyte Esterase 3+ H (NEGATIVE) Urine RBC 50-182 /hpf H /hpf (0-3) Urine WBC 50-182 /hpf H /hpf (0-3) Ur Epithelial Cells TRACE /lpf /lpf (NONE-1+) Urine Glucose 1+ H (NEGATIVE) 11/09/18 11/09/18 11/09/18 13:15 13:15 13:15 WBC 14.98 10^3/uL H 10^3/uL (3.80-9.50) RBC 5.15 10^6/uL 10^6/uL (4.18-5.33) Hgb 14.2 g/dL g/dL (12.6-16.3) Hct 44.6 % % (38.0-47.0) MCV 86.6 fL fL (81.5-99.8) MCH 27.6 pg L pg (27.9-34.1) MCHC 31.8 g/dL L g/dL (32.4-36.7) RDW 13.4 % % (11.5-15.2) Plt Count 316 10^3/uL 10^3/uL (150-400) MPV 10.0 fL fL (8.7-11.7) Neut % (Auto) 63.1 % % (39.3-74.2) Lymph % (Auto) 28.0 % % (15.0-45.0) [place] % (Auto) 6.9 % % (4.5-13.0) Eos % (Auto) 1.0 % % (0.6-7.6) Baso % (Auto) 0.3 % % (0.3-1.7) Nucleat RBC Rel Count 0.0 % % (0.0-0.2) Absolute Neuts (auto) 9.45 10^3/uL H 10^3/uL (1.70-6.50) Absolute Lymphs (auto) 4.20 10^3/uL H 10^3/uL (1.00-3.00) Absolute Monos (auto) 1.04 10^3/uL H 10^3/uL (0.30-0.80) Absolute Eos (auto) 0.15 10^3/uL 10^3/uL (0.03-0.40) Absolute Basos (auto) 0.04 10^3/uL 10^3/uL (0.02-0.10) Absolute Nucleated RBC 0.00 10^3/uL 10^3/uL (0-0.01) Immature Gran % 0.7 % % (0.0-1.1) Immature Gran # 0.10 10^3/uL 10^3/uL (0.00-0.10) PT 13.7 SEC SEC (12.0-15.0) INR 1.03 (0.83-1.16) APTT 27.5 SEC SEC (23.0-38.0) D-Dimer 0.48 ug/mLFEU ug/mLFEU (0.00-0.50) Sodium 136 mEq/L mEq/L (135-145) Potassium 4.5 mEq/L mEq/L (3.5-5.2) Chloride 97 mEq/L mEq/L (97-110) Carbon Dioxide 27 mEq/l mEq/l (22-31) Anion Gap 12 mEq/L mEq/L (6-14) BUN 13 mg/dL mg/dL (7-23) Creatinine 1.0 mg/dL mg/dL (0.6-1.0) Estimated GFR 55 Glucose 287 mg/dL H mg/dL (70-100) Calcium 9.0 mg/dL mg/dL (8.5-10.4) POC Troponin I NT-Pro-B Natriuret Pep 245 pg/mL H pg/mL (0-125) TSH Urine Color Urine Appearance Urine pH Ur Specific [place] Urine Protein Urine Ketones Urine Blood Urine Nitrate Urine Bilirubin Urine Urobilinogen Ur Leukocyte Esterase Urine RBC Urine WBC Ur Epithelial Cells Urine Glucose Medications Given: Insulin Human Lispro (Humalog Lispro) 0 unit SC TIDMEAL [facility] PRN Reason: Protocol Stop: 05/08/19 17:59 Last Admin: 11/09/18 18:52 Dose: 2 units Morphine Sulfate (Ms Contin/Oramorph) 60 mg PO BID@ LUIS ANGEL Stop: 11/19/18 17:59 Last Admin: 11/09/18 18:53 Dose: 60 mg Discontinued Medications Aspirin (Aspirin) 324 mg PO EDNOW ONE Stop: 11/09/18 13:16 Last Admin: 11/09/18 13:47 Dose: Not Given Sodium Chloride (Ns) 500 mls @ 1,000 mls/hr IV EDNOW ONE PRN Reason: Protocol Stop: 11/09/18 13:44 Last Admin: 11/09/18 13:46 Dose: 500 mls Azithromycin 500 mg/ Dextrose 255 mls @ 255 mls/hr IV EDNOW ONE PRN Reason: Protocol Stop: 11/09/18 16:07 Last Admin: 11/09/18 17:51 Dose: 255 mls Ceftriaxone Sodium 2 gm/ (Sodium Chloride) 50 mls @ 100 mls/hr IV EDNOW ONE PRN Reason: Protocol Stop: 11/09/18 15:37 Last Admin: 11/09/18 18:58 Dose: 50 mls Point of Care Test Results: Chemistry 11/09/18 13:18 POC Troponin I 0.02 ng/mL ng/mL (0.00-0.08) Departure - Departure Disposition: [facility] Acute Clinical Impression: Chest pain, Pneumonia, Urinary tract infection
[2018-11-09] MEDS ORDERED: IOPAMIDOL (ISOVUE 370) 100 ML BTL IV ONE ×2 (14:21→14:38)
[2018-11-09] MEDS ORDERED: ACETAMINOPHEN 325 MG TAB PO PRN (14:45)
[2018-11-09] MEDS ORDERED: ONDANSETRON 4 MG/2 ML VIAL IVP PRN (14:45)
[2018-11-09] MEDS ORDERED: ONDANSETRON DISINTEGRATING 4 MG TAB PO PRN (14:45)
[2018-11-09] MEDS ORDERED: AZITHROMYCIN IV 500 MG in D5W 250 ML IV ONE (15:08)
--- NOTE | 2018-11-09 15:09 | PDGENHP ---
<Bianca Marcos - Last Filed: 11/09/18 15:57> History and Physical - Chief Complaint Chest pain - History of Present Illness This is a 68 y/o female with multiple medical problems including poorly controlled diabetes, neuropathy, obesity, chronic hypoxemic respiratory failure in the setting of obesity hypoventilation and obstructive sleep apnea who presents to the emergency room after experiencing persistent right sided chest pains, onset yesterday. Location is underneath her right breast and it does not radiate. She reports experiencing palpitations a few days earlier. It is worse when she tries "to breathe like a normal person," therefore she feels short of breath. Endorses nausea. Reports not experiencing this before. Denies abdominal tenderness, vomiting, headaches, fever or chills. She is being admitted for further diagnostic work-up and monitoring. Past Medical/Surgical History 1. Diabetes II, poorly controlled, noncompliant with insulin therapy 2. Hx of E.Coli UTI and sepsis 3. Severe obesity 4. Lumbar stenosis, evaluated by Neurosurgery in March 2016, not deemed a surgical candidate 5. Peripheral neuropathy 6. Chronic nephrolithiasis, s/p ureteral stents 7. Chronic pain with chronic continuous opioid dependence 8. Fibromyalgia 9. Pulmonary nodules 10. Paroxysmal atrial fibrillation 11. Obstructive sleep apnea, on CPAP. Chronically wears 3.5L NC 12. Hx of renal cell carcinoma 13. S/p uvulopalatopharyngoplasty 14. Adenectomy 15. Diaphragmatic hernia repair Social 1. She lives independently and has home health care providers. She does have trouble performing normal ADLs. She is bedridden with minimal ambulation to and from the kitchen or the bathroom. 2. Denies tobacco or alcohol use. Endorses cannabis use. History Information - Allergies/Home Medication List Allergies/Adverse Reactions: erythromycin base [Erythromycin Base] Allergy (Severe, Verified 11/09/18 13:15) Rash Penicillins Allergy (Severe, Verified 11/09/18 13:15) Rash Shellfish *RETIRED-07/05/12 [Shellfish] Allergy (Severe, Verified 11/09/18 13:15 ) Rash Sulfa (Sulfonamide Antibiotics) Allergy (Severe, Verified 11/09/18 13:15) Rash codeine Allergy (Unknown, Verified 11/09/18 13:15) "ANTIBIOTICS" Allergy (Severe, Uncoded 11/09/18 13:15) Other-Enter Comments Home Medications: Azelastine [Astelin] 2 sprays NASAL BID PRN 12/01/11 [Last Taken 04/16/16] Thyroid,Pork [ARMOUR THYROID] 90 mg PO DAILY10 12/01/11 [Last Taken 11/09/18] Albuterol [Proventil Neb] 3 ml IH QID PRN 04/19/16 [Last Taken Unknown] Lisinopril [Zestril 5 mg (*)] 5 mg PO DAILY 04/19/16 [Last Taken 11/09/18] morphINE SR [MS Contin/Oramorph 60 mg (*)] 60 mg PO BID@,04/19/16 [Last Taken 11/09/18 06:00] morphINE IR [morphINE IR 15 mg (*)] 15 mg PO BID PRN 04/20/16 [Last Taken Unknown] Sennosides/Docusate Sodium [Senokot-S] 1 - 2 tab PO BID PRN 01/27/17 [Last Taken Unknown] Albuterol [Ventolin Hfa Inhaler] 1 - 2 puffs IH Q4 PRN 09/15/17 [Last Taken Unknown] Insulin Detemir [Levemir] 22 unit SQ BID 09/15/17 [Last Taken 11/09/18 11:00] Terconazole 20 gm VG DAILY PRN 11/09/18 [Last Taken Unknown] amLODIPine BESYLATE [Norvasc 10 mg (*)] 10 mg PO DAILY 11/09/18 [Last Taken ] I have personally reviewed and updated: family history, medical history, social history, surgical history Past Medical History: See HPI list - Surgical History Additional surgical history: See HPI list - Family History Positive for: diabetes type II Additional family history: Father - Social History Smoking Status: Never smoked Alcohol Use: None Drug Use: Marijuana Review of Systems Review of Systems: ROS: 10pt was reviewed & negative except for what was stated in HPI & below Constitutional: Reports: no symptoms EENMT: Reports: no symptoms Cardiac: Reports: chest pain, palpitations Respiratory: Reports: shortness of breath Gastrointestinal: Reports: nausea Genitourinary: Reports: frequency Muscolosketal: Reports: other (Fibromyalgia) Skin: Reports: no symptoms Neurological: Reports: no symptoms Hematologic/Lymphatic: Reports: no symptoms Immunologic/Allergy: Reports: other (See allergy list) Physical Exam Physical Exam: Lab data and imaging reviewed Temp Pulse Resp BP Pulse Ox 111 H 16 141/93 H 96 11/09/18 13:15 11/09/18 13:15 11/09/18 13:15 11/09/18 13:15 Constitutional: no apparent distress, appears nourished, not in pain, obese Eyes: PERRL, anicteric sclera, EOMI Ears, Nose, Mouth, Throat: moist mucous membranes, hearing normal, ears appear normal, no oral mucosal ulcers Cardiovascular: regular rate and rhythym, no murmur, rub, or gallop, tachycardia , edema Peripheral Pulses: 2+: dorsalis-pedis (R) (Radial 2+), dorsalis-pedis (L) ( Radial 2+) Respiratory: reduced air movement Gastrointestinal: normoactive bowel sounds, soft, non-tender abdomen, no palpable masses Genitourinary: no bladder fullness, no bladder tenderness Skin: warm, normal color, no rashes or abrasions, no fluctuance, no induration, No mottled Musculoskeletal: generalized weakness Neurologic: AAOx3, sensation intact bilaterally Psychiatric: interacting appropriately, not anxious, not encephalopathic, thought process linear Lymph, Heme, Immunologic: no cervical LAD, no supraclavicular LAD Lab Data & Imaging Review 11/09/18 13:15 11/09/18 13:15 WBC 14.98 10^3/uL (3.80-9.50) H 11/09/18 13:15 RBC 5.15 10^6/uL (4.18-5.33) 11/09/18 13:15 Hgb 14.2 g/dL (12.6-16.3) 11/09/18 13:15 Hct 44.6 % (38.0-47.0) 11/09/18 13:15 MCV 86.6 fL (81.5-99.8) 11/09/18 13:15 MCH 27.6 pg (27.9-34.1) L 11/09/18 13:15 MCHC 31.8 g/dL (32.4-36.7) L 11/09/18 13:15 RDW 13.4 % (11.5-15.2) 11/09/18 13:15 Plt Count 316 10^3/uL (150-400) 11/09/18 13:15 MPV 10.0 fL (8.7-11.7) 11/09/18 13:15 Neut % (Auto) 63.1 % (39.3-74.2) 11/09/18 13:15 Lymph % (Auto) 28.0 % (15.0-45.0) 11/09/18 13:15 [place] % (Auto) 6.9 % (4.5-13.0) 11/09/18 13:15 Eos % (Auto) 1.0 % (0.6-7.6) 11/09/18 13:15 Baso % (Auto) 0.3 % (0.3-1.7) 11/09/18 13:15 Nucleat RBC Rel Count 0.0 % (0.0-0.2) 11/09/18 13:15 Absolute Neuts (auto) 9.45 10^3/uL (1.70-6.50) H 11/09/18 13:15 Absolute Lymphs (auto) 4.20 10^3/uL (1.00-3.00) H 11/09/18 13:15 Absolute Monos (auto) 1.04 10^3/uL (0.30-0.80) H 11/09/18 13:15 Absolute Eos (auto) 0.15 10^3/uL (0.03-0.40) 11/09/18 13:15 Absolute Basos (auto) 0.04 10^3/uL (0.02-0.10) 11/09/18 13:15 Absolute Nucleated RBC 0.00 10^3/uL (0-0.01) 11/09/18 13:15 Immature Gran % 0.7 % (0.0-1.1) 11/09/18 13:15 Immature Gran # 0.10 10^3/uL (0.00-0.10) 11/09/18 13:15 PT 13.7 SEC (12.0-15.0) 11/09/18 13:15 INR 1.03 (0.83-1.16) 11/09/18 13:15 APTT 27.5 SEC (23.0-38.0) 11/09/18 13:15 D-Dimer 0.48 ug/mLFEU (0.00-0.50) 11/09/18 13:15 Sodium 136 mEq/L (135-145) 11/09/18 13:15 Potassium 4.5 mEq/L (3.5-5.2) 11/09/18 13:15 Chloride 97 mEq/L (97-110) 11/09/18 13:15 Carbon Dioxide 27 mEq/l (22-31) 11/09/18 13:15 Anion Gap 12 mEq/L (6-14) 11/09/18 13:15 BUN 13 mg/dL (7-23) 11/09/18 13:15 Creatinine 1.0 mg/dL (0.6-1.0) 11/09/18 13:15 Estimated GFR 55 11/09/18 13:15 Glucose 287 mg/dL (70-100) H 11/09/18 13:15 Calcium 9.0 mg/dL (8.5-10.4) 11/09/18 13:15 POC Troponin I 0.02 ng/mL (0.00-0.08) 11/09/18 13:18 NT-Pro-B Natriuret Pep 245 pg/mL (0-125) H 11/09/18 13:15 TSH 2.650 uIU/mL (0.465-4.680) 11/09/18 13:15 Assessment & Plan Plan: This is a 68 y/o female with multiple co-morbidities presenting with right sided persistent chest pain, worsening with deep inspiration that began yesterday. She has been mostly bedridden for many years now except for ambulating to her kitchen and her restroom when she is able to make it. She has a history of chronic UTIs - she wears a pad and places a liner underneath her so if she is unable to get up, she will stay in bed and urinate. 1. Pneumonia: symptomatic with chest pains, shortness of breath, EKG reveals sinus tachycardia, she has been tachycardic otherwise all other vitals are unremarkable. CXR reveals some sort of infiltrate. Chest CTA with contrast reveal pneumonia. -She was given ASA 324 mg in the ambulance -Received 500 ml NS from emergency room -Blood cultures obtained and pending -Started on IV Rocephin and Azithromycin; will continue these antibiotics 2. Diabetes: hx of noncompliance with medications. Last A1c was in August 2017 and was 9.4% -She may continue her Levemir -Placed on an insulin sliding scale and glucose checks TID before meals 3. Obesity: This complicates all aspects of care. -PT/OT to evaluate 4. Chronic pain with chronic opioid dependence: continue her home medications of Morphine 5. Chronic urinary frequency: no true changes in her urinary symptoms. Quite possible neurogenic bladder in the setting of diabetes. -Yin catheter placement -Urinalysis with culture pending 6. COPD: may use inhalers PRN 7. Chronic hypoxemic respiratory failure: she chronically is on 3.5 L NC supplemental oxygen. No respiratory distress. She wears a CPAP @ HS. We will continue to supply her with oxygen as needed. 8. Hypertension: she may continue lisinopril and amlodipine Diet: Carb-controlled VTE ppx: Lovenox subq, SCDs Code: Full Dispo: Admit to obs <Harley Moses - Last Filed: 11/09/18 16:17> History and Physical - History of Present Illness Review of Systems Review of Systems: Physical Exam Physical Exam: Temp Pulse Resp BP Pulse Ox 97 16 131/83 H 92 11/09/18 15:17 11/09/18 15:17 11/09/18 15:17 11/09/18 15:17 O2 (L/minute) 2 Lab Data & Imaging Review 11/09/18 13:15 11/09/18 13:15 WBC 14.98 10^3/uL (3.80-9.50) H 11/09/18 13:15 RBC 5.15 10^6/uL (4.18-5.33) 11/09/18 13:15 Hgb 14.2 g/dL (12.6-16.3) 11/09/18 13:15 Hct 44.6 % (38.0-47.0) 11/09/18 13:15 MCV 86.6 fL (81.5-99.8) 11/09/18 13:15 MCH 27.6 pg (27.9-34.1) L 11/09/18 13:15 MCHC 31.8 g/dL (32.4-36.7) L 11/09/18 13:15 RDW 13.4 % (11.5-15.2) 11/09/18 13:15 Plt Count 316 10^3/uL (150-400) 11/09/18 13:15 MPV 10.0 fL (8.7-11.7) 11/09/18 13:15 Neut % (Auto) 63.1 % (39.3-74.2) 11/09/18 13:15 Lymph % (Auto) 28.0 % (15.0-45.0) 11/09/18 13:15 [place] % (Auto) 6.9 % (4.5-13.0) 11/09/18 13:15 Eos % (Auto) 1.0 % (0.6-7.6) 11/09/18 13:15 Baso % (Auto) 0.3 % (0.3-1.7) 11/09/18 13:15 Nucleat RBC Rel Count 0.0 % (0.0-0.2) 11/09/18 13:15 Absolute Neuts (auto) 9.45 10^3/uL (1.70-6.50) H 11/09/18 13:15 Absolute Lymphs (auto) 4.20 10^3/uL (1.00-3.00) H 11/09/18 13:15 Absolute Monos (auto) 1.04 10^3/uL (0.30-0.80) H 11/09/18 13:15 Absolute Eos (auto) 0.15 10^3/uL (0.03-0.40) 11/09/18 13:15 Absolute Basos (auto) 0.04 10^3/uL (0.02-0.10) 11/09/18 13:15 Absolute Nucleated RBC 0.00 10^3/uL (0-0.01) 11/09/18 13:15 Immature Gran % 0.7 % (0.0-1.1) 11/09/18 13:15 Immature Gran # 0.10 10^3/uL (0.00-0.10) 11/09/18 13:15 PT 13.7 SEC (12.0-15.0) 11/09/18 13:15 INR 1.03 (0.83-1.16) 11/09/18 13:15 APTT 27.5 SEC (23.0-38.0) 11/09/18 13:15 D-Dimer 0.48 ug/mLFEU (0.00-0.50) 11/09/18 13:15 Sodium 136 mEq/L (135-145) 11/09/18 13:15 Potassium 4.5 mEq/L (3.5-5.2) 11/09/18 13:15 Chloride 97 mEq/L (97-110) 11/09/18 13:15 Carbon Dioxide 27 mEq/l (22-31) 11/09/18 13:15 Anion Gap 12 mEq/L (6-14) 11/09/18 13:15 BUN 13 mg/dL (7-23) 11/09/18 13:15 Creatinine 1.0 mg/dL (0.6-1.0) 11/09/18 13:15 Estimated GFR 55 11/09/18 13:15 Glucose 287 mg/dL (70-100) H 11/09/18 13:15 Calcium 9.0 mg/dL (8.5-10.4) 11/09/18 13:15 POC Troponin I 0.02 ng/mL (0.00-0.08) 11/09/18 13:18 NT-Pro-B Natriuret Pep 245 pg/mL (0-125) H 11/09/18 13:15 TSH 2.650 uIU/mL (0.465-4.680) 11/09/18 13:15 Urine Color YELLOW 11/09/18 13:15 Urine Appearance HAZY 11/09/18 13:15 Urine pH 7.0 (5.0-7.5) 11/09/18 13:15 Ur Specific [place] 1.030 (1.002-1.030) 11/09/18 13:15 Urine Protein 1+ (NEGATIVE) H 11/09/18 13:15 Urine Ketones NEGATIVE (NEGATIVE) 11/09/18 13:15 Urine Blood 3+ (NEGATIVE) H 11/09/18 13:15 Urine Nitrate NEGATIVE (NEGATIVE) 11/09/18 13:15 Urine Bilirubin NEGATIVE (NEGATIVE) 11/09/18 13:15 Urine Urobilinogen NEGATIVE EU (0.2-1.0) 11/09/18 13:15 Ur Leukocyte Esterase 3+ (NEGATIVE) H 11/09/18 13:15 Urine RBC 50-182 /hpf (0-3) H 11/09/18 13:15 Urine WBC 50-182 /hpf (0-3) H 11/09/18 13:15 Ur Epithelial Cells TRACE /lpf (NONE-1+) 11/09/18 13:15 Urine Glucose 1+ (NEGATIVE) H 11/09/18 13:15 Assessment & Plan Assessment: Chest pain (Acute) Pneumonia (Acute) Urinary tract infection (Acute) Plan: I have reviewed labs, imaging and personally examined the patient. Case discussed with Lauren Marcos NP and agree with plan as outlined above. Please see separate note for further details.
[2018-11-09] MEDS ORDERED: D50W 25 GM/50 ML SYR IVP PRN (15:30)
[2018-11-09] MEDS ORDERED: SENNOSIDES/DOCUSATE SODIUM TAB PO PRN (15:36)
[2018-11-09] MEDS ORDERED: ALBUTEROL 3 ML DEYVIAL IH PRN (15:36)
[2018-11-09] MEDS ORDERED: ALBUTEROL INH PREPACK MDI TAKEHOME PRN (15:36)
[2018-11-09] MEDS ORDERED: AZELASTINE NASAL MDI NS PRN (15:36)
[2018-11-09] MEDS ORDERED: cefTRIAXone 1 GM/DEXTROSE 1 GM/50 ML BAG IV ONE (15:43)
[2018-11-09] MEDS ORDERED: ALBUTEROL 60 PUFFS/8 GM MDI IH PRN (16:17)
--- NOTE | 2018-11-09 16:18 | HOSPPROG ---
Hospitalist Progress Note Assessment/Plan: Chart reviewed, patient personally examined, and case discussed with Lauren Marcos SENIOR ERP CONSULTANT. I agree with her plan with the following exceptions: Briefly, 68yo F with multiple comorbid conditions here with 1 day of right sided pleuritic chest pain and low grade fevers. Mildly tachycardic, leukocytosis. Initial trop/ecg negative for myocardial ischemia. BNP ok. CT chest negative for PE but shows RUL infiltrate. Admitted and being treated for pneumonia. Of note, she has chronic UTIs and her symptoms (frequency, dysuria) have somewhat worsened recently as well. 1. Community acquired pneumonia: Involving RUL. Treating with ceftriaxone 1g q24h, azithromycin 500mg qd. 2. Sepsis: Mild. Tachycardic and leukocytosis. Pulmonary vs urinary source. Follow blood cultures. Antibiotics as above. 3. Chronic E coli UTIs: Likely related to urge/overflow incontinence and morbid obesity/lack of mobility. These have all been sensitive to ceftriaxone in the past so should be covered. Follow urine culture. Consider ID consultation for possibility of suppressive outpatient antibiotics. 4. AAA: 4.8cm. No prior imaging so unable to comment on tempo of increase in size. Recommend short-term outpatient follow up imaging. 5. Chronic hypoxemic respiratory failure: At baseline 3.5L. 6. SRUTHI: On CPAP. 7. Morbid obesity: She has home health services at home. 8. Diabetes: Uncontrolled. Continue home long-acting and add SSI here. 9. Thyroid nodules: Noted on CT. Recommend outpatient follow up. 10. Chronic pain with opioid dependency: Continue home narcotics. Dispo: Admit under observation. Objective: Vital Signs Temp Pulse Resp BP Pulse Ox 97 16 131/83 H 92 11/09/18 15:17 11/09/18 15:17 11/09/18 15:17 11/09/18 15:17 PT 13.7 SEC (12.0-15.0) 11/09/18 13:15 INR 1.03 (0.83-1.16) 11/09/18 13:15 ICD10 Worksheet Patient Problems: Problems Problem Status Onset Chest pain Acute Pneumonia Acute Urinary tract infection Acute Contusion Acute Fall Acute Hyperglycemia Acute Urinary frequency Acute
[2018-11-09] MEDS: INSULIN LISPRO 100 UNIT/ML SC SCH (18:52)
[2018-11-09] MEDS: morphINE SR 60 MG TAB PO SCH (18:53)
--- NOTE | 2018-11-09 20:55 | CPEKG ---
Test Reason : OPEN Blood Pressure : / mmHG Vent. Rate : 104 BPM Atrial Rate : 104 BPM P-R Int : 150 ms QRS Dur : 078 ms QT Int : 333 ms P-R-T Axes : 037 009 041 degrees QTc Int : 438 ms Sinus tachycardia Confirmed by Lamar Victor ([id number]) on 11/09/2018 8:54:27 PM Referred By: Confirmed By:Lamar Victor
[2018-11-09] MEDS: INSULIN GLARGINE 100 UNITS/ML UNIT SC SCH (21:34)
[2018-11-09] MEDS: ENOXAPARIN 40 MG/0.4 ML SYR SC SCH (21:35)
[2018-11-10] MEDS: morphINE SR 60 MG TAB PO SCH ×2 (06:06→18:28)
[2018-11-10] MEDS: INSULIN LISPRO 100 UNIT/ML SC SCH ×3 (08:54→18:27)
[2018-11-10] MEDS: AZITHROMYCIN IV 500 MG in NS 250 ML IV SCH (09:04)
[2018-11-10] MEDS: INSULIN GLARGINE 100 UNITS/ML UNIT SC SCH ×2 (09:15→21:58)
[2018-11-10] MEDS: LISINOPRIL 5 MG TAB PO SCH (09:16)
[2018-11-10] MEDS: THYROID 60 MG TAB PO SCH (09:16)
--- NOTE | 2018-11-10 14:11 | ASMTCMCOM ---
CM Note CM Note Notes: Pts case discussed in tx rounds. Pt is a 68 y/o female admitted for chest pain and probable UTI. Pt lives in a trailer home. CM met w/ pt for dispo planning. Pt is current w/ [employer] services. Pt receives about 6hrs weekly. Pt reports that they reduced her private duty caregiver hours. Pts [employer] pillowcase sewer is Venus Mcdonald. Her number is [phone]. CM spoke to Venus. Venus reports that pt her hours have been reduced because of black mold in her home. Venus will look into increasing hours. Venus reports that they cannot assist in getting rid of the mold. Pt reports that there was never a formal investigation regarding the mold. Pt appears to have some delusions and paranoia. Dr. Proctor will order a [facility] consult. Pt refuses to work w/ therapies today. Referral made to [facility]. Therapies will continue to try to work w/ her. Needs are TBD at this time. CM to follow. Plan: TBD Date Signed: 11/10/2018 02:10 PM Electronically Signed By:MAYRA Blue
--- NOTE | 2018-11-10 15:21 | HOSPPROG ---
Hospitalist Progress Note Assessment/Plan: 68yo F with multiple comorbid conditions here with 1 day of right sided pleuritic chest pain and low grade fevers. Mildly tachycardic, leukocytosis. Initial trop/ecg negative for myocardial ischemia. BNP ok. CT chest negative for PE but shows RUL infiltrate. Admitted and being treated for pneumonia. Of note, she has chronic UTIs and her symptoms (frequency, dysuria) have somewhat worsened recently as well. 1. Community acquired pneumonia: Involving RUL. Treating with ceftriaxone 1g q24h, azithromycin 500mg qd. 2. Sepsis: Mild. Tachycardic and leukocytosis. Pulmonary vs urinary source. Follow blood cultures. Antibiotics as above. Resolved 3. Chronic E coli UTIs: Likely related to urge/overflow incontinence and morbid obesity/lack of mobility. These have all been sensitive to ceftriaxone in the past so should be covered. Follow urine culture. 4. AAA: 4.8cm. No prior imaging so unable to comment on tempo of increase in size. Recommend short-term outpatient follow up imaging. 5. Chronic hypoxemic respiratory failure: baseline 3.5L. She is mildly above baseline at this time 6. SRUTHI: On CPAP. 7. Morbid obesity: She has home health services at home. 8. Diabetes: Uncontrolled. Continue home long-acting and add SSI here. 9. Thyroid nodules: Noted on CT. Recommend outpatient follow up. 10. Chronic pain with opioid dependency: Continue home narcotics. 11. Asthma with likely Asthma - E. She wants to avoid Steroids. Will re-eval tomorrow. Will order scheduled nebs 12. HTN: home meds Dispo: change to inpatient. Still symptomatic. consider steroids tomorrow if not improving. cont abx. PT/OT: will need to make sure she is safe for a home discharge Subjective: still with some SOB Objective: Vital Signs Temp Pulse Resp BP Pulse Ox 36.7 C 90 17 112/68 95 11/10/18 15:08 11/10/18 15:08 11/10/18 15:08 11/10/18 15:08 11/10/18 15:08 Laboratory Results 11/10/18 03:30 11/10/18 03:30 11/09/18 11/10/18 11/11/18 05:59 05:59 05:59 Intake Total 400 Output Total 1800 Balance -1400 PT 13.7 SEC (12.0-15.0) 11/09/18 13:15 INR 1.03 (0.83-1.16) 11/09/18 13:15 - Physical Exam Constitutional: no apparent distress Eyes: PERRL Ears, Nose, Mouth, Throat: moist mucous membranes Cardiovascular: regular rate and rhythym, No edema Respiratory: no respiratory distress, no rales or rhonchi, clear to auscultation Gastrointestinal: normoactive bowel sounds, soft, non-tender abdomen Skin: warm Neurologic: AAOx3 Psychiatric: interacting appropriately, not anxious, not encephalopathic Lymph, Heme, Immunologic: No petechiae ICD10 Worksheet Patient Problems: Problems Problem Status Onset Chest pain Acute Pneumonia Acute Urinary tract infection Acute Contusion Acute Fall Acute Hyperglycemia Acute Urinary frequency Acute
[2018-11-10] MEDS: ALBUTEROL 3 ML DEYVIAL IH SCH ×2 (15:59→20:35)
--- NOTE | 2018-11-10 16:40 | PDMN ---
Medical Necessity Medical necessity: [facility] [place] [facility] [id number] CAP A-2 days: 68 yo w/ multi comorbidities w/ CP and SOB dx w/ pneumonia. Initially obs for workup/tx but further assessment reveals UTI and pt cont to be symptomatic w/ SOB after 24 hours. Cont to tx with IV antibx, Pt cont to require higher level O2 supplementation to maintain sat>90%, blood and urine cx pending, WBC still elevated, PT/OT evals to determine safety at home. Meets [facility] [facility] IP criteria for CAP w/ hypoxemia and multiple comorbidities, ongoing IV antibx. Hx DMII poorly controlled, noncompliance, EColi UTI/sepsis, severe obesity, lumbar stenosis, periph neuropathy, chronic nephrolithiasis w/ ureteral stents, chronic pain on chronic opioids, fibromyalgia, pulm nodules paroxysmal afib, SRUTHI on 3.5 L cont, hx renal cell ca. Change to IP status 11/10/18@1517 per MD order
[2018-11-10] MEDS ORDERED: MAGNESIUM HYDROXIDE 30 ML UDCUP PO PRN (18:25)
[2018-11-10] MEDS ORDERED: LACTULOSE 20 GM/30 ML UDCUP PO PRN (18:25)
[2018-11-10] MEDS ORDERED: BISACODYL 10 MG SUPP PR PRN (18:25)
[2018-11-10] MEDS: SENNOSIDES/DOCUSATE SODIUM TAB PO SCH (18:29)
[2018-11-10] MEDS: POLYETHYLENE GLYCOL 3350 17 GM PKT PO PRN (21:14)
[2018-11-10] MEDS: ENOXAPARIN 40 MG/0.4 ML SYR SC SCH (21:16)
[2018-11-11 04:34] LABS: PLATELET COUNT 284 10^3/uL (150-400)
[2018-11-11] MEDS: ALBUTEROL 3 ML DEYVIAL IH SCH ×4 (05:18→20:03)
[2018-11-11] MEDS: morphINE SR 60 MG TAB PO SCH ×2 (06:12→18:26)
[2018-11-11] MEDS: INSULIN GLARGINE 100 UNITS/ML UNIT SC SCH ×2 (08:37→21:15)
[2018-11-11] MEDS: LISINOPRIL 5 MG TAB PO SCH (08:38)
[2018-11-11] MEDS: SENNOSIDES/DOCUSATE SODIUM TAB PO SCH ×2 (08:38→21:15)
[2018-11-11] MEDS: THYROID 60 MG TAB PO SCH (08:50)
[2018-11-11] MEDS: INSULIN LISPRO 100 UNIT/ML SC SCH ×3 (08:51→18:26)
[2018-11-11] MEDS: ENOXAPARIN 40 MG/0.4 ML SYR SC SCH ×2 (11:29→21:15)
[2018-11-11] MEDS: AZITHROMYCIN IV 500 MG in NS 250 ML IV SCH (11:29)
--- NOTE | 2018-11-11 15:25 | HOSPPROG ---
Hospitalist Progress Note Assessment/Plan: 68yo F with multiple comorbid conditions here with 1 day of right sided pleuritic chest pain and low grade fevers. Mildly tachycardic, leukocytosis. Initial trop/ecg negative for myocardial ischemia. BNP ok. CT chest negative for PE but shows RUL infiltrate. Admitted and being treated for pneumonia. Of note, she has chronic UTIs and her symptoms (frequency, dysuria) have somewhat worsened recently as well. 1. Community acquired pneumonia: Involving RUL. Treating with ceftriaxone 1g q24h, azithromycin 500mg qd. 2. Sepsis: resolved. Mild. Tachycardic and leukocytosis. Pulmonary vs urinary source. Follow blood cultures. Antibiotics as above. Resolved 3. Chronic E coli UTIs: Likely related to urge/overflow incontinence and morbid obesity/lack of mobility. These have all been sensitive to ceftriaxone in the past so should be covered. Follow urine culture. 4. AAA: 4.8cm. No prior imaging so unable to comment on tempo of increase in size. Recommend short-term outpatient follow up imaging. 5. Chronic hypoxemic respiratory failure: baseline 3.5L. She is mildly above baseline at this time 6. SRUTHI: On CPAP. 7. Morbid obesity: She has home health services at home. 8. Diabetes: Uncontrolled. Continue home long-acting and add SSI here. 9. Thyroid nodules: Noted on CT. Recommend outpatient follow up. 10. Chronic pain with opioid dependency: Continue home narcotics. 11. Asthma with likely Asthma - E. She wants to avoid Steroids. cont scheduled nebs 12. HTN: home meds Plan: abx scheduled nebs leave gunn in for now. She agrees it will need to be removed on discharge Dispo: con inpatient PT/OT: will need to make sure she is safe for a home discharge Subjective: still with some sob. mild cp. overall she reports feeling better. breathing is better Objective: Vital Signs Temp Pulse Resp BP Pulse Ox 36.7 C 118 H 20 109/73 93 11/11/18 12:00 11/11/18 12:00 11/11/18 12:00 11/11/18 12:00 11/11/18 12:00 Laboratory Results 11/11/18 03:55 11/10/18 11/11/18 11/12/18 05:59 05:59 05:59 Intake Total 650 Output Total 1050 1000 Balance -400 -1000 PT 13.7 SEC (12.0-15.0) 11/09/18 13:15 INR 1.03 (0.83-1.16) 11/09/18 13:15 - Physical Exam Constitutional: no apparent distress Eyes: PERRL, EOMI Ears, Nose, Mouth, Throat: moist mucous membranes, hearing normal Cardiovascular: regular rate and rhythym, No edema Respiratory: reduced air movement Gastrointestinal: normoactive bowel sounds, soft, non-tender abdomen Skin: warm Neurologic: AAOx3 Psychiatric: interacting appropriately, not anxious, not encephalopathic Lymph, Heme, Immunologic: No petechiae ICD10 Worksheet Patient Problems: Problems Problem Status Onset Chest pain Acute Pneumonia Acute Urinary tract infection Acute Contusion Acute Fall Acute Hyperglycemia Acute Urinary frequency Acute
[2018-11-11] MEDS: POLYETHYLENE GLYCOL 3350 17 GM PKT PO PRN (21:15)
[2018-11-12] MEDS: morphINE SR 60 MG TAB PO SCH ×2 (05:30→18:35)
[2018-11-12] MEDS: ALBUTEROL 3 ML DEYVIAL IH SCH ×4 (06:22→21:40)
[2018-11-12] MEDS: AZITHROMYCIN IV 500 MG in NS 250 ML IV SCH (09:38)
[2018-11-12] MEDS: THYROID 60 MG TAB PO SCH (09:38)
[2018-11-12] MEDS: ENOXAPARIN 40 MG/0.4 ML SYR SC SCH ×2 (09:38→21:22)
[2018-11-12] MEDS: INSULIN LISPRO 100 UNIT/ML SC SCH ×3 (09:38→18:40)
[2018-11-12] MEDS: INSULIN GLARGINE 100 UNITS/ML UNIT SC SCH ×2 (09:51→21:22)
[2018-11-12] MEDS: SENNOSIDES/DOCUSATE SODIUM TAB PO SCH ×2 (09:54→21:22)
[2018-11-12] MEDS: LISINOPRIL 5 MG TAB PO SCH (09:55)
--- NOTE | 2018-11-12 10:12 | ASMTCMCOM ---
CM Note CM Note Notes: Susan from [facility] stopped by and met w/ pt yesterday. Pts case discussed in tx rounds. PT has cleared pt to d/c without any needs. Pt will dc home w/ [employer] private duty caregiver services. CM available for changes. Plan: Independent Date Signed: 11/12/2018 10:11 AM Electronically Signed By:MAYRA Blue
--- NOTE | 2018-11-12 12:30 | ASMTCMCOM ---
CM Note CM Note Notes: Pt does not feel comfortable switching to oral antibiotics. Referral made to [facility] and [facility]. [facility] is able to accept. Pt will need iv rocephin until Thursday11/16/18. notified [facility] that pt may have black mold in her home. [facility] reports that the nurse will wear a mask. CM to follow. Date Signed: 11/12/2018 12:30 PM Electronically Signed By:MAYRA Blue
--- NOTE | 2018-11-12 13:15 | HOSPPROG ---
Hospitalist Progress Note Assessment/Plan: 68yo F with multiple comorbid conditions here with 1 day of right sided pleuritic chest pain and low grade fevers. Mildly tachycardic, leukocytosis. Initial trop/ecg negative for myocardial ischemia. BNP ok. CT chest negative for PE but shows RUL infiltrate. Admitted and being treated for pneumonia. Of note, she has chronic UTIs and her symptoms (frequency, dysuria) have somewhat worsened recently as well. 1. Community acquired pneumonia: Involving RUL. Treating with ceftriaxone 1g q24h, azithromycin 500mg qd. 2. Sepsis: resolved. Mild. Tachycardic and leukocytosis. Pulmonary vs urinary source. Follow blood cultures. Antibiotics as above. Resolved 3. Chronic E coli UTIs: Likely related to urge/overflow incontinence and morbid obesity/lack of mobility. These have all been sensitive to ceftriaxone in the past so should be covered. Follow urine culture. 4. AAA: 4.8cm. No prior imaging so unable to comment on tempo of increase in size. Recommend short-term outpatient follow up imaging. 5. Chronic hypoxemic respiratory failure: baseline 3.5L. She is mildly above baseline at this time 6. SRUTHI: On CPAP. 7. Morbid obesity: She has home health services at home. 8. Diabetes: Uncontrolled. Continue home long-acting and add SSI here. 9. Thyroid nodules: Noted on CT. Recommend outpatient follow up. 10. Chronic pain with opioid dependency: Continue home narcotics. 11. Asthma with likely Asthma - E. She wants to avoid Steroids. cont scheduled nebs 12. HTN: home meds Plan: Doing better from a resp standpoint. Essentially at baseline. Nebs are helping. She refused a short course of steroids Cont with Rocephin x 7 days total. Azithromycin can be stopped today as she received high dose x 3 days. Discussed transitioning to PO but she refuses noting multiple abx allergies and reports she cannot tolerate any po abx. We will have CM look into options for delivering IV abx at home cont scheduled nebs leave gunn in for now. She agrees it will need to be removed on discharge. Dispo: con inpatient PT/OT: will need to make sure she is safe for a home discharge Subjective: no cp or sob. still with some right sided cp on inspiration. afebrile Objective: Vital Signs Temp Pulse Resp BP Pulse Ox 36.8 C 93 18 116/74 95 11/12/18 12:00 11/12/18 12:00 11/12/18 12:00 11/12/18 12:00 11/12/18 12:00 Laboratory Results 11/11/18 03:55 11/11/18 11/12/18 11/13/18 05:59 05:59 05:59 Intake Total 650 1360 Output Total 1050 2100 Balance -400 -740 PT 13.7 SEC (12.0-15.0) 11/09/18 13:15 INR 1.03 (0.83-1.16) 11/09/18 13:15 - Physical Exam Constitutional: no apparent distress Eyes: PERRL Ears, Nose, Mouth, Throat: moist mucous membranes Cardiovascular: regular rate and rhythym, No edema Respiratory: reduced air movement Gastrointestinal: normoactive bowel sounds, soft, non-tender abdomen Skin: warm Neurologic: AAOx3 Psychiatric: interacting appropriately, not anxious, not encephalopathic Lymph, Heme, Immunologic: No petechiae ICD10 Worksheet Patient Problems: Problems Problem Status Onset Chest pain Acute Pneumonia Acute Urinary tract infection Acute Contusion Acute Fall Acute Hyperglycemia Acute Urinary frequency Acute
[2018-11-12] MEDS ORDERED: IOPAMIDOL (ISOVUE 370) 100 ML BTL IV ONE (15:00)
--- NOTE | 2018-11-12 16:04 | ASMTCMCOM ---
CM Note CM Note Notes: CM spoke to Dr. Frazier about black mold in pts home. Dr Frazier reports that RN that comes for infusion does not need to wear a mask. [facility] is able to staff this case. [facility] is able to deliver meds to pts home tomorrow. Pt will have a bladder scan early tomorrow am. Date Signed: 11/12/2018 04:03 PM Electronically Signed By:MAYRA Blue
[2018-11-13] MEDS: morphINE SR 60 MG TAB PO SCH ×2 (05:34→18:13)
[2018-11-13] MEDS: ALBUTEROL 3 ML DEYVIAL IH SCH ×4 (06:17→20:37)
[2018-11-13] MEDS ORDERED: IOPAMIDOL (ISOVUE 370) 100 ML BTL IV ONE (08:23)
[2018-11-13] MEDS: INSULIN LISPRO 100 UNIT/ML SC SCH ×3 (10:42→18:13)
[2018-11-13] MEDS: ENOXAPARIN 40 MG/0.4 ML SYR SC SCH ×2 (10:44→21:40)
[2018-11-13] MEDS: INSULIN GLARGINE 100 UNITS/ML UNIT SC SCH ×2 (10:44→21:40)
[2018-11-13] MEDS: SENNOSIDES/DOCUSATE SODIUM TAB PO SCH ×2 (10:46→21:40)
[2018-11-13] MEDS: THYROID 60 MG TAB PO SCH (10:49)
[2018-11-13] MEDS: LISINOPRIL 5 MG TAB PO SCH (11:05)
--- NOTE | 2018-11-13 11:46 | HOSPPROG ---
Hospitalist Progress Note Assessment/Plan: 68yo F with multiple comorbid conditions admitted with right sided pleuritic chest pain and low grade fevers. CT chest negative for PE but shows RUL infiltrate. Admitted and being treated for pneumonia. Of note, she has chronic UTIs and her symptoms (frequency, dysuria) have somewhat worsened recently as well. Community acquired pneumonia: Involving RUL. -on ceftriaxone, s/p 1.5 g Azithromycin Sepsis: resolved. Mild. Tachycardic and leukocytosis. Pulmonary vs urinary source. Follow blood cultures. Antibiotics as above. Resolved Chronic E coli UTIs: Likely related to urge/overflow incontinence and morbid obesity/lack of mobility. These have all been sensitive to ceftriaxone in the past so should be covered. -UCx negative here AAA: 4.8cm. No prior imaging so unable to comment on tempo of increase in size. -Recommend short-term outpatient follow up imaging. Chronic hypoxemic respiratory failure: baseline 3.5L. She is mildly above baseline at this time SRUTHI: On CPAP. Morbid obesity: She has home health services at home. Diabetes: Uncontrolled. Continue home long-acting and add SSI here. Thyroid nodules: Noted on CT. Recommend outpatient follow up. Chronic pain with opioid dependency: Continue home narcotics. Asthma with likely Asthma - E. She wants to avoid Steroids. cont scheduled nebs HTN: home meds, dc norvasc as below NSVT: no symptoms, 10 beat run on tele overnight (pers reviewed/interp) -change norvasc to metoprolol Dispo: cont inpt, d/c gunn, anticipate dc home in 1-2 days with [facility] Subjective: Pt doing ok.. She is worried about removing gunn due to h/o incontinence. No fevers/chills. Breathing improved. No cough or SOB. Objective: Vital Signs Temp Pulse Resp BP Pulse Ox 37.1 C 101 H 19 119/82 H 95 11/13/18 07:54 11/13/18 07:54 11/13/18 07:54 11/13/18 07:54 11/13/18 07:54 Laboratory Results 11/11/18 03:55 11/13/18 03:52 11/12/18 11/13/18 11/14/18 05:59 05:59 05:59 Intake Total 1360 480 Output Total 2100 1400 Balance -740 -920 PT 13.7 SEC (12.0-15.0) 11/09/18 13:15 INR 1.03 (0.83-1.16) 11/09/18 13:15 - Physical Exam Constitutional: no apparent distress Eyes: PERRL Ears, Nose, Mouth, Throat: moist mucous membranes Cardiovascular: regular rate and rhythym Respiratory: no respiratory distress, reduced air movement, inspiratory crackles Gastrointestinal: normoactive bowel sounds, soft, non-tender abdomen Skin: warm Musculoskeletal: full muscle strength Neurologic: AAOx3 Psychiatric: interacting appropriately ICD10 Worksheet Patient Problems: Problems Problem Status Onset Chest pain Acute Pneumonia Acute Urinary tract infection Acute Contusion Acute Fall Acute Hyperglycemia Acute Urinary frequency Acute
[2018-11-13] MEDS: METOPROLOL TARTRATE 25 MG TAB PO SCH (21:41)
[2018-11-14] MEDS ORDERED: METOPROLOL TARTRATE 25 MG TAB PO SCH
[2018-11-14] MEDS: ALBUTEROL 3 ML DEYVIAL IH SCH (05:57)
[2018-11-14] MEDS: morphINE SR 60 MG TAB PO SCH (06:39)
[2018-11-14 08:21] VITALS: BP 140/86
[2018-11-14] MEDS: INSULIN LISPRO 100 UNIT/ML SC SCH (08:22)
[2018-11-14] MEDS: ENOXAPARIN 40 MG/0.4 ML SYR SC SCH (08:30)
[2018-11-14] MEDS: METOPROLOL TARTRATE 25 MG TAB PO SCH (08:32)
[2018-11-14] MEDS: LISINOPRIL 5 MG TAB PO SCH (08:32)
[2018-11-14] MEDS: SENNOSIDES/DOCUSATE SODIUM TAB PO SCH (08:32)
--- NOTE | 2018-11-14 08:34 | PDIAF ---
- Diagnosis Diagnosis: Pneumonia Code Status: Full Code - Medication Management Usp Antibiotics: Ceftriaxone 1 g IV q24 hrs x2 doses starting Wednesday 11/15 Usp Antibiotic Stop Date: 11/17/18 (dose thu, thu, then stop) Discharge Medications: electronically signed and located in the Home Medication List. PICC Care - Routine: N/A - Orders Services needed: Home Care, Registered Nurse, Physical Therapy Home Care Face to Face: I certify that this patient was under my care and that I had the required [id number] encounter meeting the encounter requirements on the discharge day. My findings support the fact that the patient is homebound as defined in Home Care Face to Face Continued: CMS Chapter 7 Medicare Benefits Manual 30.1.1 , The condition of the patient is such that there exists a normal inability to leave home and consequently, leaving home would require a considerable and taxing effort. Isolation Type: None Diet Recommendation: ADA 2000 consistent carb Additional Instructions: 2 more days of IV Ceftriaxone (thu and thu), then dc peripheral IV - Follow Up Care Current Providers and Referrals: Patient,NotPresent [Unknown] - As per Instructions
[2018-11-14] MEDS: INSULIN GLARGINE 100 UNITS/ML UNIT SC SCH (08:41)
--- NOTE | 2018-11-14 09:28 | ASMTLACE ---
VASYLE Length of stay for Answers: 3 days current admission Acuity / Level of Answers: Yes Care: Did the patient have an inpatient admission? Comorbidities - select Answers: Any tumor (including all that apply lymphoma or leukemia) Chronic pulmonary disease Diabetes (uncontrolled or controlled) Opioid dependence / Chronic pain Other Notes: HTN; Hypothyroid # of Emergency department Answers: 1-2 visits in the last 6 months Social determinants Answers: Mental health diagnosis (anxiety, depression, pers onality disorders, etc.) Score: 20 Date Signed: 11/14/2018 09:27 AM Electronically Signed By:Rosalee Telles RN
[2018-11-14] MEDS: THYROID 60 MG TAB PO SCH (10:15)
--- NOTE | 2018-11-14 13:00 | ASMTDCNOTE ---
Case Management Discharge Discharge Order Complete? Answers: Yes Patient to Obtain Answers: Other Notes: [facility] infusion Medications Transportation Arranged Answers: [facility] W/C Faxed Final Orders Answers: Yes Notes: to [facility] and [facility] Agency/Facility Transfer Answers: Yes Notes: to [facility] and [facility] Report Printed & Faxed to Receiving Agency Discharge Comments Notes: 11/14/2018 Case Management Note Faxed final orders to [facility] and [facility]. Notified both by phone. Arranged w/c transport with [facility] (medicaid is payor). Mapped 2 days of meds from [facility] pharmacy. Infusions to be delivered between 4 and 6 pm. Date Signed: 11/14/2018 01:00 PM Electronically Signed By:Rosalee Telles RN
--- NOTE | 2018-11-14 13:00 | ASDISCHSUM ---
Discharge Information Plan Status:IV ABX/Infusion Medically Cleared to Leave:11/13/2018 Discharge Date:11/14/2018 11:29 AM CM D/C Disposition:Home Health Service ADT D[facility]C [facility] Projected Discharge Date:11/12/2018 11:00 AM Transportation at D/C:Wheelchair Van Discharge Delay Reason: Follow-Up Date:11/12/2018 11:00 AM Discharge Slot: Final Diagnosis: Placement Information Referral Type:Home Infusion Referral ID:[id number] Provider Name:[facility] Address 1:[address] 2: City:[place] Selection Factors: State:[place] Referral Type:*Home Health Care Services Referral ID:[id number] Provider Name:[facility] Address [address] Address 2: City:[place] Selection Factors: State:[place] Patient Contact Information Contact Name:YARIEL Relationship:Other Address: Work Phone: City: [facility] Phone: [facility] Code: Email: Financial Information Financial Class:Medicaid Primary Plan Desc:[facility] Primary Plan Number:[id number] Secondary Plan Desc: Secondary Plan Number: Assessment Information LACE LACE Length of stay for Answers: 3 days current admission Acuity / Level of Answers: Yes Care: Did the patient have an inpatient admission? Comorbidities - select Answers: Any tumor (including all that apply lymphoma or leukemia) Chronic pulmonary disease Diabetes (uncontrolled or controlled) Opioid dependence / Chronic pain Other Notes: HTN; Hypothyroid # of Emergency department Answers: 1-2 visits in the last 6 months Social determinants Answers: Mental health diagnosis (anxiety, depression, pers onality disorders, etc.) Score: 20 Date Signed: 11/14/2018 09:27 AM Electronically Signed By:Rosalee Telles RN [facility] CM Progress Note CM Note CM Note Notes: Pts case discussed in tx rounds. Pt is a 68 y/o female admitted for chest pain and probable UTI. Pt lives in a trailer home. CM met w/ pt for dispo planning. Pt is current w/ [employer] services. Pt receives about 6hrs weekly. Pt reports that they reduced her private duty caregiver hours. Pts [facility] oil field caser is Venus Mcdonald. Her number is [phone]. CM spoke to Venus. Venus reports that pt her hours have been reduced because of black mold in her home. Venus will look into increasing hours. Venus reports that they cannot assist in getting rid of the mold. Pt reports that there was never a formal investigation regarding the mold. Pt appears to have some delusions and paranoia. Dr. Proctor will order a Lisa Frederick consult. Pt refuses to work w/ therapies today. Referral made to [facility]. Therapies will continue to try to work w/ her. Needs are TBD at this time. CM to follow. Plan: TBD Date Signed: 11/10/2018 02:10 PM Electronically Signed By:MAYRA Blue [facility] YAYA Progress Note CM Note CM Note Notes: Susan from [facility] stopped by and met w/ pt yesterday. Pts case discussed in tx rounds. PT has cleared pt to d/c without any needs. Pt will dc home w/ [employer] private duty caregiver services. CM available for changes. Plan: Independent Date Signed: 11/12/2018 10:11 AM Electronically Signed By:MAYRA Blue [facility] YAYA Progress Note CM Note CM Note Notes: Pt does not feel comfortable switching to oral antibiotics. Referral made to [facility] and [facility]. [facility] is able to accept. Pt will need iv rocephin until Thursday11/16/18. notified [facility] that pt may have black mold in her home. [facility] reports that the nurse will wear a mask. CM to follow. Date Signed: 11/12/2018 12:30 PM Electronically Signed By:MAYRA Blue [facility] YAYA Progress Note CM Note CM Note Notes: spoke to Dr. Frazier about black mold in pts home. Dr Frazier reports that RN that comes for infusion does not need to wear a mask. [facility] is able to staff this case. [facility] is able to deliver meds to pts home tomorrow. Pt will have a bladder scan early tomorrow am. Date Signed: 11/12/2018 04:03 PM Electronically Signed By:MAYRA Blue Case Management Discharge Plan Note Case Management Discharge Discharge Order Complete? Answers: Yes Patient to Obtain Answers: Other Notes: [facility] infusion Medications Transportation Arranged Answers: [facility] W/C Faxed Final Orders Answers: Yes Notes: to [facility] and [facility] Agency/Facility Transfer Answers: Yes Notes: to [facility] and [facility] Report Printed & Faxed to Receiving Agency Discharge Comments Notes: 11/14/2018 Case Management Note Faxed final orders to [facility] and [facility]. Notified both by phone. Arranged w/c transport with [facility] (medicaid is payor). Mapped 2 days of meds from [facility] pharmacy. Infusions to be delivered between 4 and 6 pm. Date Signed: 11/14/2018 01:00 PM Electronically Signed By:Rosalee Telles RN Intervention Information Intervention Type:Medication Date of Service:11/14/2018 12:58 PM Patient Type:Inpatient Staff Member:BATSHEVA Telles, Rosalee Hours: Discipline: Severity: Comment:pharmacy provided 2 days of metroprolol. Pharmaca to have in [facility] by Thursday.
--- NOTE | 2018-11-14 16:10 | GDS ---
DISCHARGE DIAGNOSES: 1. Community-acquired pneumonia of the right upper lobe. 2. Sepsis secondary to pneumonia, resolved. 3. Chronic Escherichia coli urinary tract infections with negative urine culture here. 4. Abdominal aortic aneurysm 4.8 cm, which warrants outpatient followup imaging. 5. Chronic hypoxemic respiratory failure on her baseline oxygen of 3.5 L per minute. 6. Obstructive sleep apnea. On continuous positive airway pressure. 7. Severe obesity. 8. Diabetes mellitus, type 2. 9. Thyroid nodules noted on CT scan, which can be followed up in the outpatient setting. 10. Chronic pain with chronic continuous opioid dependence. 11. Asthma. 12. Hypertension. 13. Nonsustained ventricular tachycardia. 14. Left renal nephrolithiasis with no evidence of obstruction on CT. HISTORY: For details, please see history and physical dated November 09, 2018. In brief, the patient is a 68-year-old female with multiple medical problems who presented to the emergency department com plaining of chest pain. Her workup revealed a right upper lobe pneumonia. [facility]. HOSPITAL COURSE: Patient was admitted to the progressive care unit. She was treated with IV ceftria xone and azithromycin. She completed 1.5 g of azithromycin, and this has been discontinued. She pavan l receive 2 more days of IV ceftriaxone through her peripheral IV at home via home health care RN. H er peripheral IV should be discontinued after her last dose on November 16. Her urine cult ure was negative, and there was no evidence of an active urinary tract infection. She was continued on her home inhalers and baseline oxygen requirement of 3.5 L per minute. She did have 1 episode of 8- to 10-beat run of nonsustained ventricular tachycardia which was asymptomatic. For this reason, h er amlodipine was discontinued, and she was started on oral metoprolol for prevention. I recommend s he have outpatient followup with [facility]. In addition, she had incidental finding of th yroid nodules on her CT scan, which can be followed up in the outpatient setting with thyroid ultraso und and consideration of fine-needle aspiration biopsy. Her TSH was normal at 2.65. It was also not ed she has abdominal aortic aneurysm measuring 4.8 cm. There is no prior imaging available for adam tyler. She should have outpatient followup imaging with referral to Vascular Surgery if this is enla rging. I also recommend she follow up with Urology for her recurrent nephrolithiasis issues. DISPOSITION: Patient is discharged home with home health care services in stable condition for 2 mor e days of IV ceftriaxone through her peripheral IV, at which point that should be removed. DISCHARGE MEDICATIONS: Please see [facility] completed outpatient medication list. New medications on discharge include: 1. Ceftriaxone 1 g IV daily for 2 more days, to end after her dose on November 16. 2. Tylenol 650 p.o. q.4 hours p.r.n. 3. Metoprolol 25 mg p.o. b.i.d. #60, no refills. She will continue all other outpatient medication as previously prescribed. DISCONTINUED MEDICATIONS: Amlodipine is discontinued in favor of metoprolol for her single episode o f nonsustained ventricular tachycardia. FOLLOWUP: 1. Dr. Garcia, primary care. 2. Dr. Sebas Zarate, [facility]. 3. Follow up with Urology. /[id number]/MODL
--- NOTE | 2018-11-15 12:18 | PDIAF ---
- Diagnosis Diagnosis: Pneumonia Code Status: Full Code - Medication Management Long-Term Antibiotics: Ceftriaxone 1 g IM q24 hrs x2 doses starting Wednesday 11/15 Transformer Inspector Antibiotic Stop Date: 11/17/18 (dose thu, thu, then stop) Discharge Medications: electronically signed and located in the Home Medication List. PICC Care - Routine: N/A - Orders Services needed: Home Care, Registered Nurse, Physical Therapy Home Care Face to Face: I certify that this patient was under my care and that I had the required [id number] encounter meeting the encounter requirements on the discharge day. My findings support the fact that the patient is homebound as defined in Home Care Face to Face Continued: CMS Chapter 7 Medicare Benefits Manual 30.1.1 , The condition of the patient is such that there exists a normal inability to leave home and consequently, leaving home would require a considerable and taxing effort. Isolation Type: None Diet Recommendation: ADA 2000 consistent carb Additional Instructions: 2 more days of IM Ceftriaxone (thu and thu), then dc peripheral IV. Stop the Amlodipine. Instead, take the Metoprolol 25 mg twice daily to prevent non-sustained V tac (you had a very brief run of this here). Follow up with [facility] for further recommendations. Also, outpatient follow up with Urologist. [facility] will deliver your meds today between 4 and 6 pm. You can reach them at [phone]. I instructed them to call you first. [facility] will start services tomorrow morning. You can reach them at [phone]. They will call you to set up an appointment. - Follow Up Care Current Providers and Referrals: Patient,NotPresent [Unknown] - As per Instructions Mo Zarate MD [Medical Doctor] -
== END 2018-11-14 11:29 | disposition home health service (06) | DRG 720 ==
LOC: EDUNIT# → F2W 16:05 → OBSVTOIN 11-10 14:45
PROVIDERS: ADMIT Internal Medicine; ATTEND Internal Medicine
DX: A41.9 Sepsis, unspecified organism (principal); J18.9 Pneumonia, unspecified organism; I71.4 Abdominal aortic aneurysm, without rupture; J96.11 Chronic respiratory failure with hypoxia; G89.29 Other chronic pain; F11.20 Opioid dependence, uncomplicated; R00.0 Tachycardia, unspecified; E11.40 Type 2 diabetes mellitus with diabetic neuropathy, unspecified; N20.0 Calculus of kidney; E04.1 Nontoxic single thyroid nodule; E66.01 Morbid (severe) obesity due to excess calories; Z68.41 Body mass index [BMI] 40.0-44.9, adult; I48.0 Paroxysmal atrial fibrillation; I10 Essential (primary) hypertension; J44.9 Chronic obstructive pulmonary disease, unspecified; Z99.81 Dependence on supplemental oxygen; Z87.891 Personal history of nicotine dependence; Z79.4 Long term (current) use of insulin; Z87.440 Personal history of urinary (tract) infections; Z85.528 Personal history of other malignant neoplasm of kidney; Z90.5 Acquired absence of kidney
CPT/HCPCS: 84484-ER; 97161-GP; G0378; J0456; J0696; J1650; J1815; J7613; Q9967

== ENCOUNTER 2019-03-08 15:11 | Inpatient (IN) | payer OTHER, MEDICAID ==
[2019-03-08] MEDS ORDERED: NS 1,000 ML IV ONE (15:20)
--- NOTE | 2019-03-08 15:24 | EDPHY ---
H & P Stated Complaint: Chronic UTI's c/o dysuria and frequency. DM type 2, BGL high 400's Time Seen by Provider: 03/08/19 15:20 HPI/ROS: CHIEF COMPLAINT: Urinary tract infection, hyperglycemia HISTORY OF PRESENT ILLNESS: Patient is a morbidly obese 68-year-old female who reports that she has had chronic urinary tract infections for 7 years that have largely been untreated. She also has type 2 diabetes and reports that she has had trouble controlling her glucose recently that it is been 4-500. She states that over the last month her urine has become more painful to the point where she screams and cries when she urinates. She is also having or frequency. She denies abdominal pain or back pain. She states that she has occasional fevers. She states that the only medication that has ever worked for her urine infections have been IV antibiotics because when she takes pills she gets vertiginous. In reviewing her records she was admitted in October for pneumonia and sepsis and received Rocephin and azithromycin. She had E coli in her urine at the time that was reportedly chronic and was untreated. She is bedridden because of her obesity. Severity: Moderate Modifying factors: None REVIEW OF SYSTEMS: Constitutional: denies: chills, fever, recent illness, recent injury EENTM: denies: blurred vision, double vision, nose congestion Respiratory: denies: cough, shortness of breath Cardiac: denies: chest pain, irregular heart rate, lightheadedness, palpitations Gastrointestinal/Abdominal: denies: abdominal pain, diarrhea, nausea, vomiting, blood streaked stools Genitourinary: See HPI Musculoskeletal: denies: joint pain, muscle pain Skin: denies: lesions, rash, jaundice, bruising Neurological: denies: headache, numbness, paresthesia, tingling, dizziness, weakness Hematologic/Lymphatic: denies: blood clots, easy bleeding, easy bruising Immunologic/allergic: denies: HIV/AIDS, transplant 10 systems reviewed and negative except as noted EXAM: GENERAL: Morbid obesity, HEAD: Atraumatic, normocephalic. EYES: Pupils equal round and reactive to light, extraocular movements intact, sclera anicteric, conjunctiva are normal. ENT: oropharynx clear without exudates. Moist mucous membranes. NECK: Normal range of motion, supple without lymphadenopathy or JVD. LUNGS: Breath sounds clear No wheezes rales or rhonchi. HEART: Regular rate and rhythm without murmurs, rubs or gallops. ABDOMEN: Soft, nontender, normoactive bowel sounds. No guarding, no rebound. No masses appreciated. BACK: No CVA tenderness, no spinal tenderness, step-offs or deformities EXTREMITIES: Normal range of motion, no pitting or edema. No clubbing or cyanosis. NEUROLOGICAL: Cranial nerves II through XII grossly intact. Normal speech, normal gait. 5/5 strength, normal movement in all extremities, normal sensation , normal reflexes PSYCH: Normal mood, normal affect. SKIN: Warm, dry, normal turgor, no visible rashes or lesions. Source: Patient, EMS Exam Limitations: No limitations - Medical/Surgical History Hx Asthma: Yes Hx Chronic Respiratory Disease: Yes Hx Diabetes: Yes Hx Cardiac Disease: No Hx Renal Disease: Yes Hx Cirrhosis: No Hx Alcoholism: No Hx HIV/AIDS: No Hx Splenectomy or Spleen Trauma: No Other PMH: HTN, hypothyroid, diabetes II, asthma,. chronic pain, obesity, chronic O2 use 3.5 L night/CPAP SRUTHI, kidney cancer 2002 (partial kidney on left side), sinus surgeries for COPD, oral thrush, chronic pain, spine. - Family History Significant Family History: No pertinent family hx - Social History Smoking Status: Never smoked Alcohol Use: None Constitutional: Initial Vital Signs Temperature (C) 36.8 C 03/08/19 15:13 Heart Rate 99 03/08/19 15:13 Respiratory Rate 18 03/08/19 15:13 Blood Pressure 143/96 H 03/08/19 15:13 O2 Sat (%) 97 03/08/19 15:13 O2 Delivery Mode Nasal Cannula O2 (L/minute) 3 Allergies/Adverse Reactions: erythromycin base [Erythromycin Base] Allergy (Severe, Verified 11/09/18 13:15) Rash Penicillins Allergy (Severe, Verified 11/09/18 13:15) Rash Shellfish *RETIRED-07/05/12 [Shellfish] Allergy (Severe, Verified 11/09/18 13:15 ) Rash Sulfa (Sulfonamide Antibiotics) Allergy (Severe, Verified 11/09/18 13:15) Rash codeine Allergy (Unknown, Verified 11/09/18 13:15) "ANTIBIOTICS" Allergy (Severe, Uncoded 11/09/18 13:15) Other-Enter Comments Home Medications: Medication Instructions Recorded Azelastine [Astelin] 2 sprays NASAL BID PRN 12/01/11 Thyroid,Pork [ARMOUR THYROID] 90 mg PO DAILY10 12/01/11 Albuterol [Proventil Neb] 3 ml IH QID PRN 04/19/16 Lisinopril [Zestril 5 mg (*)] 5 mg PO DAILY 04/19/16 morphINE SR [MS Contin/Oramorph 60 60 mg PO BID@,18 04/19/16 mg (*)] morphINE IR [morphINE IR 15 mg (*)] 15 mg PO BID PRN 04/20/16 Albuterol [Ventolin Hfa Inhaler] 1 - 2 puffs IH Q4 PRN 09/15/17 Insulin Detemir [Levemir] 26 unit SQ BID 09/15/17 Terconazole 20 gm VG DAILY PRN 11/09/18 Acetaminophen [Tylenol 325mg (*)] 650 mg PO Q4HRS PRN tab 11/14/18 Herbals/Supplements -Info Only 1 ea PO DAILY 03/08/19 Medical Decision Making ED Course/Re-evaluation: Patient is very angry even before talking with me. She is demanding to be admitted and demanding to get IV antibiotics and saying that she is bed ridden and cannot go home. We discussed some of the limitations of the hospital and that we will certainly be able to start her on an of IV antibiotics but that she will likely be asked to take oral antibiotics at some point. She states that she cannot do this because they will make her extremely vertiginous. 5:00 p.m. the patient's urinalysis is positive. It her workup is negative for sepsis. I have started Rocephin which she has taken in the past without difficulty. Will call hospital service for admission and this obese in mobile female with urinary tract infection and hyperglycemia. 5:30 p.m. discussed the case with Dr. Silva who will admit. Differential Diagnosis: Partial list of the Differential diagnosis considered include but were not limited to; hyperglycemia, urinary tract infection the, obesity and although unlikely based on the history and physical exam, I also considered sepsis, appendicitis,. I discussed these differential diagnoses and the plan with the patient as well as the usual and expected course. The patient understands that the diagnosis is provisional and that in medicine we are not always correct and that further workup is often warranted. Usual and customary warnings were given. All of the patient's questions were answered. The patient was instructed to return to the emergency department should the symptoms at all worsen or return, otherwise to followup with the physician as we discussed. - Data Points Laboratory Results: Laboratory Results 03/08/19 13:20 03/08/19 13:20 03/08/19 03/08/19 03/08/19 16:50 15:50 15:50 WBC RBC Hgb Hct MCV MCH MCHC RDW Plt Count MPV Neut % (Auto) Lymph % (Auto) [place] % (Auto) Eos % (Auto) Baso % (Auto) Nucleat RBC Rel Count Absolute Neuts (auto) Absolute Lymphs (auto) Absolute Monos (auto) Absolute Eos (auto) Absolute Basos (auto) Absolute Nucleated RBC Immature Gran % Immature Gran # PT 13.4 SEC SEC (12.0-15.0) INR 1.06 (0.83-1.16) APTT 26.7 SEC SEC (23.0-38.0) VBG Lactic Acid 1.8 mmol/L mmol/L (0.7-2.1) Sodium Potassium Chloride Carbon Dioxide Anion Gap BUN Creatinine Estimated GFR Glucose Calcium Total Bilirubin Specimen Hemolysis Urine Color YELLOW Urine Appearance TURBID Urine pH 6.0 (5.0-7.5) Ur Specific [place] 1.012 (1.002-1.030) Urine Protein 1+ H (NEGATIVE) Urine Ketones NEGATIVE (NEGATIVE) Urine Blood 2+ H (NEGATIVE) Urine Nitrate NEGATIVE (NEGATIVE) Urine Bilirubin NEGATIVE (NEGATIVE) Urine Urobilinogen NEGATIVE EU EU (0.2-1.0) Ur Leukocyte Esterase 3+ H (NEGATIVE) Urine RBC 50-182 /hpf H /hpf (0-3) Urine WBC 50-182 /hpf H /hpf (0-3) Ur Epithelial Cells TRACE /lpf /lpf (NONE-1+) Urine Bacteria 1+ /hpf H /hpf (NONE SEEN) Urine Glucose 3+ H (NEGATIVE) 03/08/19 03/08/19 13:20 13:20 WBC 10.22 10^3/uL H 10^3/uL (3.80-9.50) RBC 5.66 10^6/uL H 10^6/uL (4.18-5.33) Hgb 15.6 g/dL g/dL (12.6-16.3) Hct 48.6 % H % (38.0-47.0) MCV 85.9 fL fL (81.5-99.8) MCH 27.6 pg L pg (27.9-34.1) MCHC 32.1 g/dL L g/dL (32.4-36.7) RDW 13.1 % % (11.5-15.2) Plt Count 332 10^3/uL 10^3/uL (150-400) MPV 10.1 fL fL (8.7-11.7) Neut % (Auto) 64.2 % % (39.3-74.2) Lymph % (Auto) 28.0 % % (15.0-45.0) [place] % (Auto) 5.7 % % (4.5-13.0) Eos % (Auto) 1.3 % % (0.6-7.6) Baso % (Auto) 0.4 % % (0.3-1.7) Nucleat RBC Rel Count 0.0 % % (0.0-0.2) Absolute Neuts (auto) 6.57 10^3/uL H 10^3/uL (1.70-6.50) Absolute Lymphs (auto) 2.86 10^3/uL 10^3/uL (1.00-3.00) Absolute Monos (auto) 0.58 10^3/uL 10^3/uL (0.30-0.80) Absolute Eos (auto) 0.13 10^3/uL 10^3/uL (0.03-0.40) Absolute Basos (auto) 0.04 10^3/uL 10^3/uL (0.02-0.10) Absolute Nucleated RBC 0.00 10^3/uL 10^3/uL (0-0.01) Immature Gran % 0.4 % % (0.0-1.1) Immature Gran # 0.04 10^3/uL 10^3/uL (0.00-0.10) PT INR APTT VBG Lactic Acid Sodium 134 mEq/L L mEq/L (135-145) Potassium 5.6 mEq/L H mEq/L (3.5-5.2) Chloride 98 mEq/L mEq/L (97-110) Carbon Dioxide 22 mEq/l mEq/l (22-31) Anion Gap 14 mEq/L mEq/L (6-14) BUN 10 mg/dL mg/dL (7-23) Creatinine 0.8 mg/dL mg/dL (0.6-1.0) Estimated GFR > 60 Glucose 401 mg/dL H mg/dL (70-100) Calcium 9.1 mg/dL mg/dL (8.5-10.4) Total Bilirubin 0.8 mg/dL mg/dL (0.1-1.4) Specimen Hemolysis 133 Urine Color Urine Appearance Urine pH Ur Specific [place] Urine Protein Urine Ketones Urine Blood Urine Nitrate Urine Bilirubin Urine Urobilinogen Ur Leukocyte Esterase Urine RBC Urine WBC Ur Epithelial Cells Urine Bacteria Urine Glucose Medications Given: Morphine Sulfate (Ms Contin/Oramorph) 60 mg PO BID@06,18 LUIS ANGEL Stop: 03/18/19 18:32 Last Admin: 03/08/19 20:27 Dose: 60 mg Discontinued Medications Ceftriaxone Sodium/Dextrose (Rocephin 1 Gm (Premix)) 50 mls @ 100 mls/hr IV EDNOW ONE PRN Reason: Protocol Stop: 03/08/19 15:48 Last Admin: 03/08/19 16:13 Dose: 50 mls Sodium Chloride (Ns) 1,000 mls @ 0 mls/hr IV EDNOW ONE; Wide Open PRN Reason: Protocol Stop: 03/08/19 15:21 Last Admin: 03/08/19 16:15 Dose: 1,000 mls Insulin Human Regular (Humulin R) 5 unit IVP EDNOW ONE Stop: 03/08/19 16:21 Last Admin: 03/08/19 16:29 Dose: 5 units Miscellaneous Medication (Lokelma) 10 gm PO ONCE ONE Stop: 03/08/19 18:36 Last Admin: 03/08/19 20:28 Dose: 10 gm Departure - Departure Disposition: [facility] Inpatient Acute Clinical Impression: Urinary tract infection Qualifiers: Urinary tract infection type: site unspecified Hematuria presence: without hematuria Qualified Code(s): N39.0 - Urinary tract infection, site not specified Condition: Fair
[2019-03-08 15:27] LABS: PLATELET COUNT 332 10^3/uL (150-400)
[2019-03-08 16:12] LABS: INR 1.06 (0.83-1.16); PROTIME(PATIENT) 13.4 SEC (12.0-15.0)
[2019-03-08] MEDS ORDERED: INSULIN REGULAR HUMAN 100 UNIT/ML UNIT IVP ONE (16:20)
[2019-03-08] MEDS ORDERED: ACETAMINOPHEN 325 MG TAB PO PRN (17:59)
[2019-03-08] MEDS ORDERED: ONDANSETRON 4 MG/2 ML VIAL IVP PRN (17:59)
[2019-03-08] MEDS ORDERED: ONDANSETRON DISINTEGRATING 4 MG TAB PO PRN (17:59)
[2019-03-08] MEDS ORDERED: ALBUTEROL 3 ML DEYVIAL IH PRN (18:32)
[2019-03-08] MEDS ORDERED: AZELASTINE NASAL MDI EACHNARE PRN (18:32)
[2019-03-08] MEDS ORDERED: TERCONAZOLE VG PRN (18:32)
[2019-03-08] MEDS ORDERED: D50W 25 GM/50 ML SYR IVP PRN (18:33)
[2019-03-08] MEDS ORDERED: SODIUM ZIRCONIUM CYCLOSILICATE 10 GM PACKET PO ONE (18:35)
--- NOTE | 2019-03-08 18:39 | PDGENHP ---
History and Physical - Chief Complaint dysuria, frequency - History of Present Illness 68 yo female with h/o recurrent UTI's, RCC, nephrolithiasis previously requiring intervention, and chronic pain with poor mobility and high care needs presents to ED with dysuria, frequency and urgency. She is concerned she has another UTI. She endorses low grade fever of 99-100. Denies chills or rigors. No N/V. No CP or SOB. She was hospitalized in October 2018 with UTI and completed her tx course with IV ceftriaxone through a peripheral line via home care. She is very reliant on her caregiver, who was just diagnosed with cancer and Gail is now experiencing new caregivers with turnover. In the ED, she was given IV ceftriaxone. BCxs and UCx is sent. She is admitted for further management. History Information - Allergies/Home Medication List Allergies/Adverse Reactions: erythromycin base [Erythromycin Base] Allergy (Severe, Verified 11/09/18 13:15) Rash Penicillins Allergy (Severe, Verified 11/09/18 13:15) Rash Shellfish *RETIRED-07/05/12 [Shellfish] Allergy (Severe, Verified 11/09/18 13:15 ) Rash Sulfa (Sulfonamide Antibiotics) Allergy (Severe, Verified 11/09/18 13:15) Rash codeine Allergy (Unknown, Verified 11/09/18 13:15) "ANTIBIOTICS" Allergy (Severe, Uncoded 11/09/18 13:15) Other-Enter Comments Home Medications: Azelastine [Astelin] 2 sprays NASAL BID PRN 12/01/11 [Last Taken 04/16/16] Thyroid,Pork [ARMOUR THYROID] 90 mg PO DAILY10 12/01/11 [Last Taken 11/09/18] Albuterol [Proventil Neb] 3 ml IH QID PRN 04/19/16 [Last Taken Unknown] Lisinopril [Zestril 5 mg (*)] 5 mg PO DAILY 04/19/16 [Last Taken 11/09/18] morphINE SR [MS Contin/Oramorph 60 mg (*)] 60 mg PO BID@,18 04/19/16 [Last Taken 11/09/18 06:00] morphINE IR [morphINE IR 15 mg (*)] 15 mg PO BID PRN 04/20/16 [Last Taken Unknown] Albuterol [Ventolin Hfa Inhaler] 1 - 2 puffs IH Q4 PRN 09/15/17 [Last Taken Unknown] Insulin Detemir [Levemir] 26 unit SQ BID 09/15/17 [Last Taken 11/09/18 11:00] Terconazole 20 gm VG DAILY PRN 11/09/18 [Last Taken Unknown] Herbals/Supplements -Info Only 1 ea PO DAILY 03/08/19 [Last Taken Unknown] I have personally reviewed and updated: family history, medical history, social history, surgical history - Past Medical History diabetes type 2, hypertension Additional medical history: Nephrolithiasis s/p ureteral stents (unclear if these are still present). RCC s/p partial nephrectomy. CHRF on 3.5 LPM at baseline, thought 2/2 OHS - Surgical History Reports: hernia repair Additional surgical history: partial nephrectomy - Family History Positive for: diabetes type II Additional family history: Father - Social History Smoking Status: Never smoked Alcohol Use: None Drug Use: None Additional social history: Lives at home with caregiver support Review of Systems Review of Systems: ROS: 10pt was reviewed & negative except for what was stated in HPI & below Physical Exam Physical Exam: Temp Pulse Resp BP Pulse Ox 36.7 C 86 18 124/76 H 97 03/08/19 16:15 03/08/19 16:15 03/08/19 16:15 03/08/19 16:15 03/08/19 16:15 Constitutional: no apparent distress Eyes: PERRL Ears, Nose, Mouth, Throat: moist mucous membranes Cardiovascular: regular rate and rhythym Respiratory: no respiratory distress, reduced air movement Gastrointestinal: normoactive bowel sounds, soft, non-tender abdomen Skin: warm, other (no perineal skin breakdown or e/o pressure injury) Musculoskeletal: full muscle strength Neurologic: AAOx3 Psychiatric: interacting appropriately Lab Data & Imaging Review 03/08/19 13:20 03/08/19 13:20 WBC 10.22 10^3/uL (3.80-9.50) H 03/08/19 13:20 RBC 5.66 10^6/uL (4.18-5.33) H 03/08/19 13:20 Hgb 15.6 g/dL (12.6-16.3) 03/08/19 13:20 Hct 48.6 % (38.0-47.0) H 03/08/19 13:20 MCV 85.9 fL (81.5-99.8) 03/08/19 13:20 MCH 27.6 pg (27.9-34.1) L 03/08/19 13:20 MCHC 32.1 g/dL (32.4-36.7) L 03/08/19 13:20 RDW 13.1 % (11.5-15.2) 03/08/19 13:20 Plt Count 332 10^3/uL (150-400) 03/08/19 13:20 MPV 10.1 fL (8.7-11.7) 03/08/19 13:20 Neut % (Auto) 64.2 % (39.3-74.2) 03/08/19 13:20 Lymph % (Auto) 28.0 % (15.0-45.0) 03/08/19 13:20 [place] % (Auto) 5.7 % (4.5-13.0) 03/08/19 13:20 Eos % (Auto) 1.3 % (0.6-7.6) 03/08/19 13:20 Baso % (Auto) 0.4 % (0.3-1.7) 03/08/19 13: Nucleat RBC Rel Count 0.0 % (0.0-0.2) 03/08/19 13:20 Absolute Neuts (auto) 6.57 10^3/uL (1.70-6.50) H 03/08/19 13:20 Absolute Lymphs (auto) 2.86 10^3/uL (1.00-3.00) 03/08/19 13:20 Absolute Monos (auto) 0.58 10^3/uL (0.30-0.80) 03/08/19 13:20 Absolute Eos (auto) 0.13 10^3/uL (0.03-0.40) 03/08/19 13:20 Absolute Basos (auto) 0.04 10^3/uL (0.02-0.10) 03/08/19 13:20 Absolute Nucleated RBC 0.00 10^3/uL (0-0.01) 03/08/19 13:20 Immature Gran % 0.4 % (0.0-1.1) 03/08/19 13:20 Immature Gran # 0.04 10^3/uL (0.00-0.10) 03/08/19 13:20 PT 13.4 SEC (12.0-15.0) 03/08/19 15:50 INR 1.06 (0.83-1.16) 03/08/19 15:50 APTT 26.7 SEC (23.0-38.0) 03/08/19 15:50 VBG Lactic Acid 1.8 mmol/L (0.7-2.1) 03/08/19 15:50 Sodium 134 mEq/L (135-145) L 03/08/19 13:20 Potassium 5.6 mEq/L (3.5-5.2) H 03/08/19 13:20 Chloride 98 mEq/L (97-110) 03/08/19 13:20 Carbon Dioxide 22 mEq/l (22-31) 03/08/19 13:20 Anion Gap 14 mEq/L (6-14) 03/08/19 13:20 BUN 10 mg/dL (7-23) 03/08/19 13:20 Creatinine 0.8 mg/dL (0.6-1.0) 03/08/19 13:20 Estimated GFR > 60 03/08/19 13:20 Glucose 401 mg/dL (70-100) H 03/08/19 13:20 POC Glucose 251 mg/dL (70-100) H 03/08/19 17:21 Calcium 9.1 mg/dL (8.5-10.4) 03/08/19 13:20 Total Bilirubin 0.8 mg/dL (0.1-1.4) 03/08/19 13:20 Specimen Hemolysis 133 03/08/19 13:20 Urine Color YELLOW 03/08/19 16:50 Urine Appearance TURBID 03/08/19 16:50 Urine pH 6.0 (5.0-7.5) 03/08/19 16:50 Ur Specific [place] 1.012 (1.002-1.030) 03/08/19 16:50 Urine Protein 1+ (NEGATIVE) H 03/08/19 16:50 Urine Ketones NEGATIVE (NEGATIVE) 03/08/19 16:50 Urine Blood 2+ (NEGATIVE) H 03/08/19 16:50 Urine Nitrate NEGATIVE (NEGATIVE) 03/08/19 16:50 Urine Bilirubin NEGATIVE (NEGATIVE) 03/08/19 16:50 Urine Urobilinogen NEGATIVE EU (0.2-1.0) 03/08/19 16:50 Ur Leukocyte Esterase 3+ (NEGATIVE) H 03/08/19 16:50 Urine RBC 50-182 /hpf (0-3) H 03/08/19 16:50 Urine WBC 50-182 /hpf (0-3) H 03/08/19 16:50 Ur Epithelial Cells TRACE /lpf (NONE-1+) 03/08/19 16:50 Urine Bacteria 1+ /hpf (NONE SEEN) H 03/08/19 16:50 Urine Glucose 3+ (NEGATIVE) H 03/08/19 16:50 Assessment & Plan Assessment: Urinary tract infection (Acute) - recurrent UTI's, pt believes she cannot tolerate any po atbx and must be treated with only IV atbx. This has been a point of contention in the past. Prior Cx's with E coli sensitive to Ceftriaxone. Will continue this for now, await UCx and BCx data. No signs of sepsis on arrival. Hematuria - note h/o nephrolithiasis requiring intervention (has had b/l stents , unclear if these are still present). With recurrent UTI and hematuria, will check CT noncon to r/o stone. She has not been able to f/u with outpt urology as they don't accept medicaid. Hyperkalemia - hold lisinopril, give lokelma and recheck in am DM type 2 - cont home basal insulin, add SSI Chronic pain with chronic continuous opioid dependence - cont home morphine Hypothyroidism - cont armour thyroid CHRF 2/2 OHS and possible h/o asthma - no e/o exacerbation. Cont prn albuterol. O2 is at baseline. Full code Dispo - inpt, anticipate >48 hrs hospitalization, PT/OT evals and CM consult requested
[2019-03-08] MEDS: morphINE SR 60 MG TAB PO SCH (20:27)
[2019-03-08] MEDS: INSULIN GLARGINE 100 UNITS/ML UNIT SC SCH (22:13)
[2019-03-09] MEDS ORDERED: INSULIN LISPRO 100 UNIT/ML SC ONE (02:20)
[2019-03-09] MEDS: morphINE SR 60 MG TAB PO SCH ×2 (05:02→17:54)
[2019-03-09 05:16] LABS: PLATELET COUNT 271 10^3/uL (150-400)
[2019-03-09] MEDS: INSULIN LISPRO 100 UNIT/ML SC SCH ×4 (07:58→21:09)
[2019-03-09] MEDS ORDERED: INSULIN LISPRO 100 UNIT/ML SC SCH (08:00)
[2019-03-09] MEDS ORDERED: LISINOPRIL 5 MG TAB PO SCH (09:00)
[2019-03-09] MEDS: INSULIN GLARGINE 100 UNITS/ML UNIT SC SCH ×2 (09:38→21:09)
[2019-03-09] MEDS: ENOXAPARIN 40 MG/0.4 ML SYR SC SCH ×2 (09:38→21:10)
[2019-03-09] MEDS: THYROID 60 MG TAB PO SCH (09:38)
--- NOTE | 2019-03-09 16:38 | HOSPPROG ---
Hospitalist Progress Note Assessment/Plan: DIAGNOSES: * Acute urinary tract infection complicated by fever, acutely worsened symptoms of frequency dysuria and prior history of similar infections * Enterococcus faecalis and a gram-negative growing and urine culture so far * Acute hyperkalemia * She describes symptoms that are also strongly suggestive of some chronic interstitial cystitis or other irritant illness with her bladder and urethra - as she had Medicaid until recently she was unable to get in with any of the local urologists but now has Medicare. She has sensory has had no assessment or treatment for these chronic symptoms * Diabetes - not well controlled here or at home * Chronic hypertension * History of kidney stones, kidney stone seen in kidneys now but no ureteral stone * History of renal cell carcinoma status post partial nephrectomy * Chronic hypoxemic respiratory failure * Chronic pain syndrome on chronic prescribed narcotics for that PLANS: * Continue antibiotics but will add vancomycin due to Enterococcus being present as well as a gram-negative isabel ( penicillin allergic) * Follow cultures and sensitivity testing closely * Will need to increase her treatment for diabetes at this time; continue diabetic diet * Continue chronic pain medicines * Follow electrolytes values closely * Increase ambulation as able * Is on DVT prophylaxis * High have asked our social work team to try and assist in getting her connected with Dr. 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: Exam: alert oriented relaxed Very obese lying in bed skin warm dry color ok resps not labored lungs clear BSs heart regular abd soft nondistended nontender, bowel sounds present limbs warm, no edema iv site ok Lab data: White count slightly improved Potassium now normal Blood sugars running 220-348 so far today Microbiology: Urine culture now with a gram-negative isabel 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 as well as Enterococcus faecalis Blood cultures pending with no growth to date Objective: Vital Signs Temp Pulse Resp BP Pulse Ox 36.7 C 87 14 122/87 H 94 03/09/19 15:50 03/09/19 15:50 03/09/19 15:50 03/09/19 15:50 03/09/19 15:50 Laboratory Results 03/09/19 04:32 03/09/19 04:32 03/08/19 03/09/19 03/10/19 06:59 06:59 06:59 Intake Total 1400 Balance 1400 PT 13.4 SEC (12.0-15.0) 03/08/19 15:50 INR 1.06 (0.83-1.16) 03/08/19 15:50 - Time Spent With Patient Time Spent with Patient: greater than 35 minutes Time Spent with Patient: Greater than 35 minutes spent on this patients care, greater than 50% of time spent counseling, educating, and coordinating care regarding the above mentioned plan. ICD10 Worksheet Patient Problems: Problems Problem Status Onset Urinary tract infection Acute Chest pain Acute Contusion Acute Fall Acute Hyperglycemia Acute Pneumonia Acute Urinary frequency Acute
--- NOTE | 2019-03-09 16:55 | ASMTCMCOM ---
CM Note CM Note Notes: 03/09/2019 Case Management Note Pt admitted for hyperglycemia and UTI. Met w/pt to discuss d/c needs. Pt open with [facility] services. [facility] case preparer and liner is Venus Mcdonald [phone]. Left notifying of admission. Please review previous admission notes from Case Management. Previous admission in October, referral to [facility]. Updated [facility] on admission. October d/c was with [facility]; notified of admission; pt refused to allow [facility] to provide care in October. [facility] Pt has 6 hours a week of unskilled care from [facility]. Pt declined Meals on Wheels today d/t allergy to MSG. Therapy evals pending. Requested Palliative Care consult. Case Management attempted to set up follow up Urology appointment with Dr. Purvis at [facility] at [phone]. Will need to set appointment tomorrow; the urology office was closed. PCP is [place] at [facility]. Case Management d/c poc: to be determined pending therapy evals and recommendations. Case Management to follow. Date Signed: 03/09/2019 04:54 PM Electronically Signed By:Rosalee Telles RN
[2019-03-09] MEDS ORDERED: BISACODYL 10 MG SUPP PR PRN (17:04)
[2019-03-09] MEDS ORDERED: LACTULOSE 20 GM/30 ML UDCUP PO PRN (17:04)
[2019-03-09] MEDS ORDERED: MAGNESIUM HYDROXIDE 30 ML UDCUP PO PRN (17:04)
[2019-03-09] MEDS: VANCOMYCIN 1.25 GM in NS 250 ML IV SCH (17:29)
[2019-03-09] MEDS: SENNOSIDES/DOCUSATE SODIUM TAB PO SCH (21:10)
[2019-03-10] MEDS: VANCOMYCIN 1.25 GM in NS 250 ML IV SCH ×2 (05:12→17:05)
[2019-03-10] MEDS: morphINE SR 60 MG TAB PO SCH ×2 (05:12→18:07)
[2019-03-10] MEDS: INSULIN LISPRO 100 UNIT/ML SC SCH ×4 (08:11→22:15)
[2019-03-10] MEDS: ENOXAPARIN 40 MG/0.4 ML SYR SC SCH ×2 (08:11→22:14)
[2019-03-10] MEDS: SENNOSIDES/DOCUSATE SODIUM TAB PO SCH ×2 (08:11→22:12)
[2019-03-10] MEDS: INSULIN GLARGINE 100 UNITS/ML UNIT SC SCH ×2 (08:11→22:15)
[2019-03-10] MEDS: THYROID 60 MG TAB PO SCH (10:07)
--- NOTE | 2019-03-10 10:29 | PDMN ---
Medical Necessity Medical necessity: Pt meets IP criteria per & MCG M-300; est los >2 mn for eval/tx of acute UTI complicated by fever & acutely worsened symptoms of frequency dysuria; awaiting cxs; admit for IV abx & CM consult for assistance establishing follow-up care/management of chronic urinary symptoms; hx recurrent UTIs, poorly controlled diabetes, renal cell carcinoma s/p partial nephrectomy, nephrolithiasis s/p ureteral stents; per order 03/08/19
--- NOTE | 2019-03-10 15:50 | ASMTCMCOM ---
CM Note CM Note Notes: Appointment scheduled with urologist Dr Jacobson 04/19 @ 1030. Please see CM note 03/09 for other relevant details. Current CM Discharge kurtis: home with [facility] services as outpatient f/u as directed Date Signed: 03/10/2019 03:49 PM Electronically Signed By:Maylin Lopez RN
--- NOTE | 2019-03-10 16:38 | HOSPPROG ---
Hospitalist Progress Note Assessment/Plan: DIAGNOSES: * Acute urinary tract infection complicated by fever, acutely worsened symptoms of frequency dysuria and prior history of similar infections * Enterococcus faecalis and a gram-negative growing and urine culture so far ( Pen allergic so limited to Vanco for E faecalis) * Acute hyperkalemia * chronic interstitial cystitis or other irritant illness with her bladder and urethra strongly suggested from her describe symptoms- as she had Medicaid until recently she was unable to get in with any of the local urologists but now has Medicare. She has essentially had no assessment or treatment for these chronic symptoms, but they are very bothersome and debilitating for her; also has incontinence * Diabetes - not well controlled here or at home * Chronic hypertension * History of kidney stones, kidney stone seen in kidneys now but no ureteral stone * History of renal cell carcinoma status post partial nephrectomy * Chronic hypoxemic respiratory failure, COPD and suspect obesity hypoventilation syndrome as well * Chronic pain syndrome on chronic prescribed narcotics for that PLANS: * Continue Vanco for enterococcus and Rocephin for gram-negative at this time * Follow cultures and sensitivity testing closely * Will need to increase her treatment for diabetes at this time; continue diabetic diet * Continue chronic pain medicines * Follow electrolytes values closely * Increase ambulation as able * Is on DVT prophylaxis * High have asked our social work team to try and assist in getting her connected with Dr. Muniz at [facility] or other urologist for outpatient management of her chronic urinary symptoms Seen by me on hospitalist rounds as well as multidisciplinary rounds SUBJECTIVE: Little change in overall symptoms Still having sweats and hot and cold sensations Intermittent respiratory symptoms which are her usual, and are responding to nebulizer treatment Remains very weak Poor appetite OBJECTIVE Vitals reviewed: Stable vitals without fever today Exam: alert oriented relaxed Very obese lying in bed skin warm dry color ok resps not labored lungs clear BSs heart regular abd soft nondistended nontender, bowel sounds present limbs warm, no edema iv site ok Lab data: Sugars remain elevated needing improved control Microbiology: 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 as 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 as Enterococcus faecalis Blood cultures pending with no growth to date Objective: Vital Signs Temp Pulse Resp BP Pulse Ox 36.6 C 86 16 129/72 H 94 03/10/19 16:13 03/10/19 16:13 03/10/19 16:13 03/10/19 16:13 03/10/19 16:13 Laboratory Results 03/09/19 04:32 03/09/19 04:32 03/09/19 03/10/19 03/11/19 06:59 06:59 06:59 Intake Total 1400 Output Total 850 Balance 1400 -850 PT 13.4 SEC (12.0-15.0) 03/08/19 15:50 INR 1.06 (0.83-1.16) 03/08/19 15:50 - Time Spent With Patient Time Spent with Patient: greater than 35 minutes Time Spent with Patient: Greater than 35 minutes spent on this patients care, greater than 50% of time spent counseling, educating, and coordinating care regarding the above mentioned plan. ICD10 Worksheet Patient Problems: Problems Problem Status Onset Urinary tract infection Acute Chest pain Acute Contusion Acute Fall Acute Hyperglycemia Acute Pneumonia Acute Urinary frequency Acute
[2019-03-11] MEDS: VANCOMYCIN 1.25 GM in NS 250 ML IV SCH ×2 (05:29→17:43)
[2019-03-11] MEDS: morphINE SR 60 MG TAB PO SCH ×2 (05:29→17:46)
[2019-03-11] MEDS: INSULIN LISPRO 100 UNIT/ML SC SCH ×4 (09:47→22:14)
[2019-03-11] MEDS: SENNOSIDES/DOCUSATE SODIUM TAB PO SCH ×2 (09:47→22:15)
[2019-03-11] MEDS: THYROID 60 MG TAB PO SCH (09:49)
[2019-03-11] MEDS: INSULIN GLARGINE 100 UNITS/ML UNIT SC SCH ×2 (09:49→22:27)
[2019-03-11] MEDS: ENOXAPARIN 40 MG/0.4 ML SYR SC SCH ×2 (09:50→22:14)
--- NOTE | 2019-03-11 12:57 | ASMTCMCOM ---
CM Note CM Note Notes: CM met with pt in her room and discussed in interdisciplinary rounds. Pt will continue on vancomycin and her cultures will be followed closely. Electrolytes will also be monitored. Pt had a gunn catheter put in per her request a couple of days ago. CM will continue to monitor. CM D/C plan: Home with continuation of [facility] services. Date Signed: 03/11/2019 12:57 PM Electronically Signed By:Pratibha Tubbs
--- NOTE | 2019-03-11 16:18 | HOSPPROG ---
Hospitalist Progress Note Assessment/Plan: DIAGNOSES: * Acute urinary tract infection complicated by fever, acutely worsened symptoms of frequency dysuria and prior history of similar infections * Enterococcus faecalis and a gram-negative growing and urine culture so far ( Pen allergic so limited to Vanco for E faecalis) * Acute hyperkalemia * chronic interstitial cystitis or other irritant illness with her bladder and urethra strongly suggested from her describe symptoms- * Diabetes - not well controlled here or at home * Chronic hypertension * History of kidney stones, kidney stone seen in kidneys now but no ureteral stone * History of renal cell carcinoma status post partial nephrectomy * Chronic hypoxemic respiratory failure, COPD and suspect obesity hypoventilation syndrome as well * Chronic pain syndrome on chronic prescribed narcotics for that PLANS: * Continue Vanco for enterococcus and Rocephin for gram-negative at this time, discussed with ID who recommended treating but obtaining sensitivities. Could transition to zyvox. would treat for 7 day course as well. * Follow cultures and sensitivity testing closely * Will need to increase her treatment for diabetes at this time; continue diabetic diet * Continue chronic pain medicines * Follow electrolytes values closely * Increase ambulation as able * Is on DVT prophylaxis * Has appt with urology set up. * chart, records reviewed, as patient is new to me. Subjective: no dysuria today. no complaints. Objective: Vital Signs Temp Pulse Resp BP Pulse Ox 36.6 C 89 18 115/86 H 95 03/11/19 15:48 03/11/19 15:48 03/11/19 15:48 03/11/19 15:48 03/11/19 15:48 Laboratory Results 03/09/19 04:32 03/09/19 04:32 03/10/19 03/11/19 03/12/19 05:59 05:59 05:59 Intake Total 1050 Output Total 850 650 Balance -850 400 PT 13.4 SEC (12.0-15.0) 03/08/19 15:50 INR 1.06 (0.83-1.16) 03/08/19 15:50 - Physical Exam Constitutional: no apparent distress, appears nourished, not in pain Eyes: PERRL, anicteric sclera, EOMI Ears, Nose, Mouth, Throat: moist mucous membranes, hearing normal, ears appear normal, no oral mucosal ulcers Cardiovascular: regular rate and rhythym, no murmur, rub, or gallop Respiratory: no respiratory distress, no rales or rhonchi, clear to auscultation Gastrointestinal: normoactive bowel sounds, soft, non-tender abdomen, no palpable masses Genitourinary: no bladder fullness, no bladder tenderness, no renal bruits Skin: no rashes or abrasions, no fluctuance, no induration Musculoskeletal: full muscle strength, no muscle tenderness, normal joint ROM Neurologic: AAOx3, sensation intact bilaterally Psychiatric: interacting appropriately, not anxious, not encephalopathic, thought process linear Lymph, Heme, Immunologic: no cervical LAD, no supraclavicular LAD ICD10 Worksheet Patient Problems: Problems Problem Status Onset Urinary tract infection Acute Chest pain Acute Contusion Acute Fall Acute Hyperglycemia Acute Pneumonia Acute Urinary frequency Acute
[2019-03-12] MEDS: morphINE SR 60 MG TAB PO SCH ×2 (05:23→18:53)
[2019-03-12] MEDS: VANCOMYCIN 1.25 GM in NS 250 ML IV SCH ×2 (05:24→20:14)
[2019-03-12] MEDS: SENNOSIDES/DOCUSATE SODIUM TAB PO SCH ×2 (08:38→21:12)
[2019-03-12] MEDS: INSULIN LISPRO 100 UNIT/ML SC SCH ×4 (08:39→21:14)
[2019-03-12] MEDS: THYROID 60 MG TAB PO SCH (08:39)
[2019-03-12] MEDS: INSULIN GLARGINE 100 UNITS/ML UNIT SC SCH ×2 (08:39→21:14)
[2019-03-12] MEDS: ENOXAPARIN 40 MG/0.4 ML SYR SC SCH ×2 (08:40→21:13)
--- NOTE | 2019-03-12 15:11 | HOSPPROG ---
Hospitalist Progress Note Assessment/Plan: DIAGNOSES: * Acute urinary tract infection complicated by fever, acutely worsened symptoms of frequency dysuria and prior history of similar infections * Enterococcus faecalis and a gram-negative growing and urine culture so far ( Pen allergic so limited to Vanco for E faecalis) * Acute hyperkalemia * chronic interstitial cystitis or other irritant illness with her bladder and urethra strongly suggested from her describe symptoms- * Overactive bladder, vs urge incontinence in setting of chronic interstitial cystitis. * Diabetes - not well controlled here or at home * Chronic hypertension * History of kidney stones, kidney stone seen in kidneys now but no ureteral stone * History of renal cell carcinoma status post partial nephrectomy * Chronic hypoxemic respiratory failure, COPD and suspect obesity hypoventilation syndrome as well * Chronic pain syndrome on chronic prescribed narcotics for that PLANS: * Continue Vanco for enterococcus and Rocephin for gram-negative at this time, discussed with ID who recommended treating but obtaining sensitivities. Could transition to zyvox. would treat for 7 day course as well. * add trial of ditropan for OAB * plan to dc gunn in am * Follow cultures and sensitivity testing closely * Increase lantus to 28 BID. cont ssi * Continue chronic pain medicines * Follow electrolytes values closely * Increase ambulation as able * Is on DVT prophylaxis * Has appt with urology set up. Subjective: no complaints. Objective: Vital Signs Temp Pulse Resp BP Pulse Ox 37.1 C 90 16 115/76 94 03/12/19 12:00 03/12/19 12:00 03/12/19 12:00 03/12/19 12:00 03/12/19 12:00 Laboratory Results 03/09/19 04:32 03/12/19 04:44 03/11/19 03/12/19 03/13/19 05:59 05:59 05:59 Intake Total 1050 1350 Output Total 650 Balance 400 1350 PT 13.4 SEC (12.0-15.0) 03/08/19 15:50 INR 1.06 (0.83-1.16) 03/08/19 15:50 - Physical Exam Constitutional: no apparent distress, appears nourished, not in pain Eyes: PERRL, anicteric sclera, EOMI Ears, Nose, Mouth, Throat: moist mucous membranes, hearing normal, ears appear normal, no oral mucosal ulcers Cardiovascular: regular rate and rhythym, no murmur, rub, or gallop Respiratory: no respiratory distress, no rales or rhonchi, clear to auscultation Gastrointestinal: normoactive bowel sounds, soft, non-tender abdomen, no palpable masses Genitourinary: no bladder fullness, no bladder tenderness, no renal bruits Skin: no rashes or abrasions, no fluctuance, no induration Musculoskeletal: full muscle strength, no muscle tenderness, normal joint ROM Neurologic: AAOx3, sensation intact bilaterally Psychiatric: interacting appropriately, not anxious, not encephalopathic, thought process linear Lymph, Heme, Immunologic: no cervical LAD, no supraclavicular LAD ICD10 Worksheet Patient Problems: Problems Problem Status Onset Urinary tract infection Acute Chest pain Acute Contusion Acute Fall Acute Hyperglycemia Acute Pneumonia Acute Urinary frequency Acute
[2019-03-12] MEDS ORDERED: OXYBUTYNIN CHLORIDE 5 MG TAB PO SCH ×2 (16:32→22:00)
[2019-03-12] MEDS: OXYBUTYNIN CHLORIDE 5 MG TAB PO SCH ×2 (18:54→21:13)
[2019-03-12] MEDS: VANCOMYCIN HCL/NORMAL SALINE 250 ML IV SCH (19:05)
[2019-03-12] MEDS ORDERED: HYDROCORTISONE 1% CREAM TP PRN (20:23)
[2019-03-12] MEDS: POLYETHYLENE GLYCOL 3350 17 GM PKT PO PRN (21:13)
[2019-03-13 04:39] LABS: PLATELET COUNT 228 10^3/uL (150-400)
[2019-03-13] MEDS: VANCOMYCIN HCL/NORMAL SALINE 250 ML IV SCH ×2 (06:22→18:11)
[2019-03-13] MEDS: morphINE SR 60 MG TAB PO SCH ×2 (06:22→18:12)
[2019-03-13] MEDS: OXYBUTYNIN CHLORIDE 5 MG TAB PO SCH ×3 (09:57→21:24)
[2019-03-13] MEDS: SENNOSIDES/DOCUSATE SODIUM TAB PO SCH ×2 (09:57→21:23)
[2019-03-13] MEDS: INSULIN LISPRO 100 UNIT/ML SC SCH ×4 (09:57→21:23)
[2019-03-13] MEDS: THYROID 60 MG TAB PO SCH (09:58)
[2019-03-13] MEDS: ENOXAPARIN 40 MG/0.4 ML SYR SC SCH ×2 (09:58→21:23)
[2019-03-13] MEDS: INSULIN GLARGINE 100 UNITS/ML UNIT SC SCH ×2 (09:59→21:23)
[2019-03-13] MEDS: POLYETHYLENE GLYCOL 3350 17 GM PKT PO PRN (14:51)
--- NOTE | 2019-03-13 17:57 | HOSPPROG ---
Hospitalist Progress Note Assessment/Plan: DIAGNOSES: * Acute urinary tract infection complicated by fever, acutely worsened symptoms of frequency dysuria and prior history of similar infections * Enterococcus faecalis and a gram-negative growing and urine culture so far ( Pen allergic so limited to Vanco for E faecalis) * Acute hyperkalemia * chronic interstitial cystitis or other irritant illness with her bladder and urethra strongly suggested from her describe symptoms- * Overactive bladder, vs urge incontinence in setting of chronic interstitial cystitis. * Diabetes - not well controlled here or at home * Chronic hypertension * History of kidney stones, kidney stone seen in kidneys now but no ureteral stone * History of renal cell carcinoma status post partial nephrectomy * Chronic hypoxemic respiratory failure, COPD and suspect obesity hypoventilation syndrome as well * Chronic pain syndrome on chronic prescribed narcotics for that PLANS: * Continue Vanco for enterococcus and Rocephin for gram-negative at this time, discussed with ID who recommended treating but obtaining sensitivities. Could transition to zyvox. would treat for 7 day course as well. * add trial of ditropan for OAB * plan to dc gunn in am * Follow cultures and sensitivity testing closely * Increase lantus to 28 BID. cont ssi * Continue chronic pain medicines * Follow electrolytes values closely * Increase ambulation as able * Is on DVT prophylaxis * Has appt with urology set up. Subjective: angry about gunn removal. inconvenienced at having to get up to void. Objective: Vital Signs Temp Pulse Resp BP Pulse Ox 36.8 C 84 16 124/78 H 94 03/13/19 15:29 03/13/19 15:29 03/13/19 15:29 03/13/19 15:29 03/13/19 15:29 Laboratory Results 03/13/19 04:26 03/13/19 04:26 03/12/19 03/13/19 03/14/19 05:59 05:59 05:59 Intake Total 1350 1550 Output Total 2150 250 Balance 1350 -600 -250 PT 13.4 SEC (12.0-15.0) 03/08/19 15:50 INR 1.06 (0.83-1.16) 03/08/19 15:50 - Physical Exam Constitutional: no apparent distress, appears nourished, not in pain Eyes: PERRL, anicteric sclera, EOMI Ears, Nose, Mouth, Throat: moist mucous membranes, hearing normal, ears appear normal, no oral mucosal ulcers Cardiovascular: regular rate and rhythym, no murmur, rub, or gallop Respiratory: no respiratory distress, no rales or rhonchi, clear to auscultation Gastrointestinal: normoactive bowel sounds, soft, non-tender abdomen, no palpable masses Genitourinary: no bladder fullness, no bladder tenderness, no renal bruits Skin: no rashes or abrasions, no fluctuance, no induration Musculoskeletal: full muscle strength, no muscle tenderness, normal joint ROM Neurologic: AAOx3, sensation intact bilaterally Psychiatric: interacting appropriately, not anxious, not encephalopathic, thought process linear Lymph, Heme, Immunologic: no cervical LAD, no supraclavicular LAD ICD10 Worksheet Patient Problems: Problems Problem Status Onset Urinary tract infection Acute Chest pain Acute Contusion Acute Fall Acute Hyperglycemia Acute Pneumonia Acute Urinary frequency Acute
[2019-03-14] MEDS: morphINE SR 60 MG TAB PO SCH (05:14)
[2019-03-14] MEDS: VANCOMYCIN HCL/NORMAL SALINE 250 ML IV SCH (05:14)
[2019-03-14 07:48] VITALS: BP 113/70
[2019-03-14] MEDS: INSULIN LISPRO 100 UNIT/ML SC SCH ×2 (07:59→11:58)
[2019-03-14] MEDS: THYROID 60 MG TAB PO SCH (10:02)
[2019-03-14] MEDS: SENNOSIDES/DOCUSATE SODIUM TAB PO SCH (10:02)
[2019-03-14] MEDS: OXYBUTYNIN CHLORIDE 5 MG TAB PO SCH (10:02)
[2019-03-14] MEDS: INSULIN GLARGINE 100 UNITS/ML UNIT SC SCH (10:03)
[2019-03-14] MEDS: ENOXAPARIN 40 MG/0.4 ML SYR SC SCH (10:04)
--- NOTE | 2019-03-14 10:11 | ASMTCMCOM ---
CM Note CM Note Notes: On 03/13 4:45 CM met with Pt in her room to discuss discharge planning. Pt lives in a trailer at [facility] and would like to go back home. Pt had her Yin catheter removed the morning of 03/13 and has been upset saying she is incontinent in her attends all the time. Pt was started on Ditropan. Pt does not want CM to have contact with [facility] as she does not feel they help her. Pt states Angelina Garza RN & Margaux Zarate CM at the [facility] is who she works with. Pt would like [facility] serves when discharged. Pt continues on IV antibiotic and may likely change to a PO form before discharge. Also c/o more dizziness. Pt is concern about getting a ride home. CM available for needs. PLAN: Pt will likely discharge home with [facility]. Date Signed: 03/14/2019 10:10 AM Electronically Signed By:Anna Marie Whaley
--- NOTE | 2019-03-14 13:59 | ASMTCMCOM ---
CM Note CM Note Notes: Pt has refused PT/OT care and only wants non-medical staff from [facility]. CM has sent updated orders and referrals to [facility] care service staff on the floor and Pt agreed to speak with them. [facility] will provide care with Pt at home. Referrals and order sent via [facility]. Arrangements made with [facility] to transport Pt home via W/C and O2 needs during transport at 1330. Pt made aware. PLAN: Discharge home with [facility] and [facility]. Date Signed: 03/14/2019 01:29 PM Electronically Signed By:Anna Marie Whaley
--- NOTE | 2019-03-14 14:05 | ASMTCMCOM ---
CM Note CM Note Notes: CM met with Pt who continues to be upset about being discharge, her gunn discontinued, & her care. Ally Mayes (nurse internal audit senior manager updated). Pt gave this CM permission to send updated information to [facility] to arrange "non-medical home care staff". Pt is refusing PT/OT or any other staff at this time. CM monitoring Pt's needs. Date Signed: 03/14/2019 01:39 PM Electronically Signed By:Anna Marie Whaley
--- NOTE | 2019-03-14 14:09 | ASMTLACE ---
ALF Length of stay for Answers: 4-6 days current admission Acuity / Level of Answers: Yes Care: Did the patient have an inpatient admission? Comorbidities - select Answers: Chronic pulmonary disease all that apply Diabetes (uncontrolled or controlled) Opioid dependence / Chronic pain Other Notes: HTN; Hypothyroid; Recur rocío t UTIs # of Emergency department Answers: 1-2 visits in the last 6 months Score: 16 Date Signed: 03/14/2019 01:40 PM Electronically Signed By:Anna Marie Whaley
--- NOTE | 2019-03-14 16:55 | PDDCSUM ---
Discharge Summary Discharge Summary: Discharge diagnosis urinary tract infection Enterococcus urinary tract infection Hematuria Hyperkalemia Insulin-dependent diabetes mellitus Chronic interstitial cystitis Urinary incontinence Over active bladder Chronic pain with continuous opioid dependence Hypothyroidism Chronic hypoxemic respiratory failure The patient was admitted with dysuria and found to have a urinary tract infection. The patient states that she could not tolerate oral antibiotics and so was requiring IV antibiotics. The patient's urinary culture grew out enterococcus and E coli. She was started on vancomycin IV along with Rocephin given her urinary culture. The patient's A1c was checked because she was having persistent hyperglycemia on her home dose of 26 units twice daily of Lantus and her morbid obesity. Her hemoglobin A1c returned at 10.8. Her Lantus was increased to 29 units twice daily all and she continued to have elevated blood glucoses. Eventually her urine culture sensitivities came back sensitive to IV vancomycin and ceftriaxone. The patient completed a course of 7 days of IV antibiotics for her underlying urinary tract infection. The patient was set up for an outpatient appointment with Urology to address her chronic interstitial cystitis along with her urinary incontinence. The patient worked with Physical therapy and Occupational therapy and was really found have no needs. The patient was discharged home to follow up with her primary care physician for further evaluation of her underlying medical problems along with Urology. The patient was started on Ditropan 5 mg three times daily for her urge incontinence S seemed to tolerate the medication just fine. Disposition Home independent New medications Ditropan 5 mg three times daily I spent over 30 min on the discharge of this patient
[2019-03-14] MEDS ORDERED: VANCOMYCIN 750 MG in D5W 150 ML IV SCH (18:00)
--- NOTE | 2019-03-15 14:10 | ASMTCMCOM ---
CM Note CM Note Notes: [facility] Randa and Bon met with Pt. Pt has decided to go into [facility] at [place]. Arrangements made for transfer by Franco g[facility]/ [facility]. support worker is 1430 and Brother will ride in the Ambulance with Pt. Updated orders, medication, DNR sent to [facility]. PLAN: Discharge to [facility]. Date Signed: 03/15/2019 02:09 PM Electronically Signed By:Anna Marie Whaley
== END 2019-03-14 13:11 | disposition home health service (06) | DRG 690 ==
LOC: EDUNIT# → OBSVTOIN 17:55 → F1N 18:55
PROVIDERS: ADMIT Hospitalist; ATTEND Internal Medicine
DX: N39.0 Urinary tract infection, site not specified (principal); B96.20 Unspecified Escherichia coli [E. coli] as the cause of diseases classified elsewhere; B95.2 Enterococcus as the cause of diseases classified elsewhere; E87.5 Hyperkalemia; J96.11 Chronic respiratory failure with hypoxia; N30.11 Interstitial cystitis (chronic) with hematuria; E66.2 Morbid (severe) obesity with alveolar hypoventilation; E11.65 Type 2 diabetes mellitus with hyperglycemia; E03.9 Hypothyroidism, unspecified; G89.29 Other chronic pain; F11.20 Opioid dependence, uncomplicated; I10 Essential (primary) hypertension; Z87.442 Personal history of urinary calculi; Z79.4 Long term (current) use of insulin; Z85.528 Personal history of other malignant neoplasm of kidney; Z74.01 Bed confinement status; Z68.41 Body mass index [BMI] 40.0-44.9, adult
CPT/HCPCS: 96365; 97162-GP; 97167-GO; J0696; J1650; J1815; J3370; J7613